=== PATIENT | female | born 1975 | race Caucasian/White ===

== ENCOUNTER 2017-07-30 21:25 | Emergency (ER) | payer MEDICAID, SELFPAY ==
[2017-07-30 21:28] VITALS: BP 142/99; PULSE 100; PULSE 99; RESP 18; RESP 20; TEMP 37.4; O2SAT 96; O2SAT 97; BMI 28.9
[2017-07-30 22:44] LABS: Color, Urine Yellow (Yellow); Glucose, Dipstick Normal (Normal); Ketone-Dipstick Negative (Negative); Leukocyte Esterase-Dipstick Negative /ul (Negative); Nitrite-Dipstick Negative (Negative); Occult Blood-Urine Negative /ul (Negative); Protein-Dipstick Negative (Negative); Specific Gravity, Urine 1.015 (1.002-1.030); Urine Bilirubin Dipstick Negative (Negative); Urine Clarity Clear (Clear); Urine Urobilinogen Normal (Normal)
--- NOTE | 2017-07-30 22:45 | CT_ITS ---
STUDY: CT ABDOMEN AND PELVIS WITHOUT CONTRAST REASON FOR EXAM: Female, 41 years old. No pelvic pain x3 days, urinary pressure and urgency. Elevated pressure. History of hypertension, RADIATION DOSAGE (If Supplied By Facility): CTDIvol = ( 11.75 ) mGy, DLP = ( 601.81 ) mGycm TECHNIQUE: Transaxial 2.5 mm images were obtained from the dome of the diaphragm to the symphysis pubis without oral contrast, and without intravenous contrast. Sagittal and coronal images were reconstructed. This examination is limited for the evaluation of gastrointestinal, solid organs and vascular structures due to the lack of intravenous and oral contrast. Individualized dose optimization techniques were used for this CT. COMPARISON: None. FINDINGS: The visualized lung bases are unremarkable. The visualized portions of the heart are within normal limits. Normal liver. Normal gallbladder and extrahepatic biliary system. Normal spleen. Normal pancreas. Normal bilateral adrenal glands. Normal right kidney. Normal left kidney. There is no obstructive uropathy, obstructive renal or ureteral calculi. Normal visualized stomach. Normal small intestine. Normal colon. The appendix is visualized and appears normal. Image 46-51 series 601. Normal abdominal aorta. Normal inferior vena cava. Normal retroperitoneum. Normal urinary bladder. There is fluid around the uterus and adnexa with poor delineation of ovaries and uterus. There is a complex fatty lesion with soft tissue, fat and calcification in the left adnexa highly suspicious for a left dermoid of the ovary measuring approximately 2.9 x 3 x 2.5 cm image 155 series 2, image 46 series 601. Normal abdominal wall. There are diffuse degenerative changes of the visualized lower lumbar spine. CT/Abdomen/Pelvis without Cont IMPRESSION: There is no obstructive uropathy, obstructive renal or ureteral calculi. Left ovarian dermoid suspected with limited detail of uterus and adnexa and pelvic fluid. Further assessment can be performed with pelvic ultrasound. Electronically Signed: Tesha Stevenson MD at 0:42 EDT , Service support ,
[2017-07-30 22:49] LABS: Absolute Lymphocyte Count 2.19 X10^3/ul (0.83-4.51); Absolute Neutrophil Count 5.3 X10^3/uL (2.0-7.7); Basophil# 0.02 X10^3/uL; Basophil% 0.2 % (0-1); Eosinophils% 1.2 % (0-5); Hematocrit 42.9 % (37-47); Hemoglobin 14.5 g/dl (12.0-15.0); Lymphocyte # 2.19 X10^3/ul (4.0); Lymphocyte % 26.5 % (19-41); Mean Corp Hgb Conc 33.8 g/gl (32-36); Mean Corpuscular Hgb 29.2 pg (27.0-32.0); Mean Corpuscular Volume 86.5 fL (81-99); Mean Platelet Vol. 10.6 fl (6.2-12.0); Monocyte# 0.67 X10^3/uL; Monocyte% 8.1 % (0-10); Neutrophil # 5.28 X10^3/uL (2.7-7.7); Neutrophil % 63.9 % (47-70); Platelet Count 216 K/mm3 (150-450); RBC Distribution Width CV 12.4 % (11.6-14.6); RBC Distribution Width SD 39.5 fl (35.1-43.9); Red Blood Count 4.96 M/mm3 (4.2-5.4); White Blood Count 8.3 K/mm3 (4.4-11.0)
[2017-07-30 22:50] LABS: POSITIVE COUNT NO; POSITIVE DIFFERENTIAL NO; POSITIVE MORPHOLOGY NO
[2017-07-30 23:06] LABS: Anion Gap 5 (5-15); BUN 14 mg/dL (7-18); BUN/Creat Ratio 19.9 RATIO (10-20); Calcium,Total 8.7 mg/dL (8.5-10.1); Chloride 107 mmol/L (98-107); EST Glomerular Filtration Rate 98 mL/min (>60); Est Glom Filt Rate - Afr Amer 118 mL/min (>60); Estimated Creatinine Clearance 101.01 ml/min; Glucose 96 mg/dL (74-106); Sodium Level 138 mmol/L (136-145)
[2017-07-30 23:12] LABS: Mucous, Urine RARE /hpf (<or=2+)
[2017-07-30 23:13] LABS: Squamous Epithelial Cells - UA 0-5 SEEN /hpf (5-10); White Blood Cells 0-5 SEEN /hpf (0-5)
[2017-07-30 23:15] LABS: Bacteria RARE /hpf (None Seen)
[2017-07-30 23:16] LABS: Red Blood Cells-Urine 0 SEEN /hpf (0-5)
[2017-07-30 23:19] LABS: Pregnancy, Serum, hCG Quali. NEGATIVE Negative (0-9 Nonpreg)
[2017-07-30 23:30] VITALS: BP 141/88; PULSE 91; RESP 16; O2SAT 97
--- NOTE | 2017-07-31 01:27 | ED.VISSUMM ---
- ER Visit Summary Date of Service: 07/31/17 Chief Complaint: Abdominal pain] History of Present Illness: The patient is a 41 F [presents with abdominal pain ?3 days. Patient currently rates her pain a 5 out of 10. Patient describes some pressure over her bladder as well as urinary frequency and urgency. Patient's been feeling somewhat bloated since yesterday. Patient denies any fever. Patient was seen at the urgent care today and sent to the ER. Patient's last menstrual period was about a month ago. Patient states her periods are typically irregular. Past medical history includes hypertension.] Physical Examination: [HEENT-PERRLA, EOMI. Cranial nerves II through XII grossly intact. TMs clear. Mucous membranes moist. No adenopathy. Cardiovascular-regular rate and rhythm without murmur or ectopy Lungs-clear to auscultation, chest wall stable without crepitus or subcu emphysema Abdomen-normoactive bowel sounds, soft. Patient has some mild tenderness over the suprapubic region. There is no rebound, rigidity, or perineal signs. Extremities-intact ?4, normal range of motion, normal pulses, atraumatic] Test Results: [CBC with differential was normal. Chemistries were normal. Urinalysis was unremarkable. HCG was negative. CT scan of the abdomen and pelvis obtained showed no obstructive uropathy left ovarian dermoid suspected with limited detail of uterus and adnexa and patient also noted to have pelvic fluid. The appendix was normal.] Emergency Department Course and Treatment: [Patient case was discussed with Dr. Rico who is on-call for [employer] who asked that patient follow-up with her office.] Treatment Plan: [Patient does not want anything for pain and will follow up with Dr. Rico.] Disposition: [Discharged home in stable condition] Impression: [Abdominal pain Dermoid cyst] This note was generated with [employer] dictation software. It may contain incorrect words, spelling, and punctuation that were not noted in review of the chart prior to signing ED Disposition - Plan for ED Patient: Chief Complaint: Female C/O Referrals: Care Physician,No Primary [Primary Care Provider] -
--- NOTE | 2017-07-31 01:30 | ED.DEP ---
ED Disposition - Plan for ED Patient: Chief Complaint: Female C/O Instructions: ED Abdominal Pain Unkn Cause, What Are Ovarian Cysts? Referrals: Care Physician,No Primary [Primary Care Provider] - Serena Rico MD [STAFF PHYSICIAN] - 3-5 Days
[2017-07-31 01:48] VITALS: BP 129/66; PULSE 82; RESP 16; O2SAT 98
== END 2017-07-31 01:49 | disposition home or self-care (01) ==
LOC: ED 23:12
PROVIDERS: Emergency Provider Emergency Medicine
DX: D27.1 Benign neoplasm of left ovary (principal); R10.9 Unspecified abdominal pain; I10 Essential (primary) hypertension; Z79.899 Other long term (current) drug therapy
CPT/HCPCS: 74176; 80048; 81001; 84703; 85025; 99283; A4216

== ENCOUNTER → 2017-08-03 07:23 | Outpatient (CLI) | payer MEDICAID, SELFPAY ==
[2017-08-07 11:34] LABS: HPV APTIMA, High Risk Negative (Negative)
== END ==
PROVIDERS: Visit Provider Nurse Practitioner Women's Health
DX: Z12.4 Encounter for screening for malignant neoplasm of cervix (principal)
CPT/HCPCS: 88175; G0145

== ENCOUNTER → 2017-08-12 12:25 | Outpatient (CLI) | payer MEDICAID, SELFPAY ==
--- NOTE | 2017-08-12 12:30 | US_ITS ---
STUDY: ULTRASOUND OF THE FEMALE PELVIS - COMPLETE REASON FOR EXAM: Female, 41 years old. Dermoid cyst on CT. LMP: August 10, 2017. TECHNIQUE: Transabdominal and Transvaginal TECHNICAL QUALITY: Adequate. COMPARISON: CT abdomen and pelvis July 30, 2017 FINDINGS: The uterus is anteverted and is in a midline position. The uterus measures 7.7 x 5.5 x 4.0 cm. Normal uterine cervix. The endometrium measures 2.7 mm in thickness, and is hyperechoic. There is no demonstrated endometrial mass. There is no demonstrated myometrial mass. I.U.D. - The patient does not have an I.U.D. The right ovary is visualized. The right ovary measures 3.5 x 5.5 x 4.0 cm. There are multiple small, peripheral follicles of the right ovary without a dominant cyst. There is no visualized right adnexal mass or complex lesion. There is normal arterial and normal venous vascularity. The left ovary is visualized. The left ovary measures 5.0 x 3.3 x 3.5 cm. This includes a complex, mixed echogenic 2.7 x 2.2 x 2.3 cm partially fluid filled structure correlating to the dermoid on CT. There is a band of hypoechogenicity within this, presumably correlating to the partially calcified eccentric soft tissue density at the margin of the dermoid on CT. There is normal arterial and normal venous vascularity. There is no fluid in the cul-de-sac. The pre void volume of the bladder was 75.4 ml. Polycystic ovary disease: No. US/Pelvic (Non ) IMPRESSION: 1. Complex 2.7 cm lesion in the left ovary correlating to the dermoid noted by CT. 2. The uterus and right ovary are unremarkable. Electronically Signed: Ambrocio Sethi MD at 19:54 EDT , Service support ,
--- NOTE | 2017-08-12 12:30 | US_ITS ---
STUDY: ULTRASOUND OF THE FEMALE PELVIS - COMPLETE REASON FOR EXAM: Female, 41 years old. Dermoid cyst on CT. LMP: August 10, 2017. TECHNIQUE: Transabdominal and Transvaginal TECHNICAL QUALITY: Adequate. COMPARISON: CT abdomen and pelvis July 30, 2017 FINDINGS: The uterus is anteverted and is in a midline position. The uterus measures 7.7 x 5.5 x 4.0 cm. Normal uterine cervix. The endometrium measures 2.7 mm in thickness, and is hyperechoic. There is no demonstrated endometrial mass. There is no demonstrated myometrial mass. I.U.D. - The patient does not have an I.U.D. The right ovary is visualized. The right ovary measures 3.5 x 5.5 x 4.0 cm. There are multiple small, peripheral follicles of the right ovary without a dominant cyst. There is no visualized right adnexal mass or complex lesion. There is normal arterial and normal venous vascularity. The left ovary is visualized. The left ovary measures 5.0 x 3.3 x 3.5 cm. This includes a complex, mixed echogenic 2.7 x 2.2 x 2.3 cm partially fluid filled structure correlating to the dermoid on CT. There is a band of hypoechogenicity within this, presumably correlating to the partially calcified eccentric soft tissue density at the margin of the dermoid on CT. There is normal arterial and normal venous vascularity. There is no fluid in the cul-de-sac. The pre void volume of the bladder was 75.4 ml. Polycystic ovary disease: No. US/Transvaginal Non- IMPRESSION: 1. Complex 2.7 cm lesion in the left ovary correlating to the dermoid noted by CT. 2. The uterus and right ovary are unremarkable. Electronically Signed: Ambrocio Sethi MD at 19:54 EDT , Service support ,
== END ==
PROVIDERS: Visit Provider Nurse Practitioner Women's Health
DX: D27.1 Benign neoplasm of left ovary (principal); R10.2 Pelvic and perineal pain
CPT/HCPCS: 76830; 76856; 93976

== ENCOUNTER 2017-08-25 22:25 | Emergency (ER) | payer MEDICAID, SELFPAY ==
[2017-08-25 22:26] VITALS: BP 139/94; PULSE 98; RESP 18; TEMP 37; O2SAT 98; BMI 28.2
--- NOTE | 2017-08-25 22:44 | ED.VISSUMM ---
- ER Visit Summary Date of Service: 08/25/17 Chief Complaint: Right calf pain History of Present Illness: The patient is a 41 F who presents for 1 day of right calf pain. Patient states she has been having knee pain for 1 week, and today her upper calf has been hurting. Denies any history of trauma. Denies fever, chest pain, shortness of breath. She has had decreased physical activity due to pain from a dermoid cyst on her ovary. She denies tobacco use, exogenous hormone use, recent travel or surgery, or history of venous thromboembolism. History of hypertension since age 16. Physical Examination: Vital signs: afebrile, hemodynamically stable, no hypoxia on room air General: well nourished, well developed, in no distress Skin: warm, dry, no rash, no pallor HEENT: normocephalic and atraumatic; PERRL, EOMI, moist mucous membranes Cardiovascular: Heart rate 98, regular rate and rhythm without murmurs, no peripheral edema, 2+ pulses all distal extremities Respiratory: No increased work of breathing, lungs are clear to auscultation bilaterally, no rales, rhonchi or wheezing Abdominal: Abdomen is soft, nontender with normoactive bowel sounds, no guarding or rebound, no masses MSK: Moves all extremities, no deformities, normal strength, tenderness to palpation of the right proximal posterior calf, no palpable cords, negative Homans sign, 2+ DP pulses, posterior pain with range of motion of the knee and no deformities to the knee, no swelling or joint effusion Neuro: Awake and alert, oriented ?4. No facial droop, sensation and motor function intact and symmetric Test Results: [] Emergency Department Course and Treatment: Patient was offered and declined pain medication. Ultrasound was performed of the right lower extremity to evaluate for possible DVT as the source of patient's new calf pain. It was negative. Discussed symptomatic treatment with patient, and she should follow-up with her doctor if she continues to have knee pain and calf pain. Patient agreed and was discharged home. Treatment Plan: [] Disposition: [] Impression: Atraumatic right knee and calf pain This note was generated with [employer] dictation software. It may contain incorrect words, spelling, and punctuation that were not noted in review of the chart prior to signing ED Disposition - Plan for ED Patient: Disposition: Home or Assisted Living Chief Complaint: Lower Extremity Injury Instructions: ED Knee Pain UKO Referrals: Care Physician,No Primary [Primary Care Provider] - Doctor,Your [STAFF PHYSICIAN] - 3-5 Days if not improving Additional Instructions: Your ultrasound of your leg showed no blood clot. Please use [id number] pain medication of your choice for knee pain and the calf pain. You may also use ice and elevation of the leg to see if this helps with the pain. Please follow-up with your doctor for further evaluation if you continue to have issues with your leg. If you have any worsening of your condition or any new concerning symptoms, please return immediately to the emergency department for another evaluation.
--- NOTE | 2017-08-25 23:34 | US_ITS ---
STUDY: VENOUS DOPPLER ULTRASOUND - RIGHT LOWER EXTREMITY REASON FOR EXAM: Female, 41 years old. Right calf pain TECHNIQUE: Ultrasound evaluation of the deep vein system to include whitehead-scale imaging and compression was performed. Whitehead-scale imaging and Doppler sonographic evaluation, including duplex spectral analysis and qualitative color flow sonography, was performed. COMPARISON: None. FINDINGS: No deep venous thrombosis is identified. All visualized veins demonstrate normal compressibility, augmentation and/or color flow. US/Venous Duplex Imag/Limited/Uni IMPRESSION: No DVT is identified. Electronically Signed: Francisco Valadez MD at 0:35 EDT Tel , Service support ,
--- NOTE | 2017-08-26 00:43 | ED.DEP ---
ED Disposition - Plan for ED Patient: Disposition: Home or Assisted Living Chief Complaint: Lower Extremity Injury Instructions: ED Knee Pain UKO Referrals: Care Physician,No Primary [Primary Care Provider] - Doctor,Your [STAFF PHYSICIAN] - 3-5 Days if not improving Additional Instructions: Your ultrasound of your leg showed no blood clot. Please use [id number] pain medication of your choice for knee pain and the calf pain. You may also use ice and elevation of the leg to see if this helps with the pain. Please follow-up with your doctor for further evaluation if you continue to have issues with your leg. If you have any worsening of your condition or any new concerning symptoms, please return immediately to the emergency department for another evaluation.
[2017-08-26 01:03] VITALS: BP 131/82; PULSE 78; RESP 16; O2SAT 95
== END 2017-08-26 01:03 | disposition home or self-care (01) ==
PROVIDERS: Emergency Provider Emergency Medicine
DX: M25.561 Pain in right knee (principal); M79.661 Pain in right lower leg; I10 Essential (primary) hypertension; Z79.899 Other long term (current) drug therapy
CPT/HCPCS: 93971; 99282

== ENCOUNTER → 2017-10-01 12:28 | Outpatient (CLI) | payer MEDICAID, SELFPAY ==
--- NOTE | 2017-10-01 12:31 | US_ITS ---
STUDY: ULTRASOUND TRANSVAGINAL CLINICAL: Female, 42 years old. History of dermoid cyst, pelvic and perineal pain. TECHNIQUE: Transabdominal and Transvaginal COMPARISON: Prior study of August 12, 2017 FINDINGS: Uterus measures 7.5 x 4.7 x 4.3 cm, is anteverted, and is in a midline position.. Uterus demonstrates a heterogeneous echotexture. There are no myometrial masses. Normal endometrial thickness measuring 4.7 mm. There are no endometrial masses, and there is no fluid in the endometrial cavity. There is a cervical nabothian cyst. Normal right ovary, measuring 3.2 x 2.5 x 2.4 cm. Normal left ovary, measuring 3.8 x 4.0 x 3.1 cm. There is a mixed echogenic left ovarian structure measuring 2.9 x 3.0 x 2.5 cm appearing similar to the previous study, corresponding to an ovarian dermoid reported on prior CT of 07/30/2017. There is no free fluid in the pelvis. Polycystic ovary disease: No. US/Transvaginal Non- IMPRESSION: Mixed echogenic left ovarian structure measuring 2.9 x 3.0 x 2.5 cm corresponding to a left ovarian dermoid reported on prior CT of 07/30/2017. Uterus demonstrates a heterogeneous echotexture. There is a cervical nabothian cyst. There is no fluid in the cul-de-sac. Electronically Signed: Nicola Crisostomo MD at 22:15 EDT , Service support ,
== END ==
PROVIDERS: Visit Provider Obstetrics & Gynecology
DX: N83.202 Unspecified ovarian cyst, left side (principal); R10.2 Pelvic and perineal pain
CPT/HCPCS: 76830; 93976

== ENCOUNTER 2017-10-15 10:35 | Day surgery (SDC) | payer MEDICAID, SELFPAY ==
--- NOTE | 2017-10-13 17:07 | PCM.HP.STD ---
Problem List (1) Dermoid cyst Status: Acute History of Present Illness Date of Admission: 10/15/17 Chief Complaint: dermoid cyst The patient is a 42 year old F presents for laparoscopic removal of a left ovarian dermoid cyst for which she has had pain and it has been persistent. Past Medical History Medical History: Medical History (Last Updated 08/03/17 @ 13:27 by Niki Lepe) History of depression Z86.59 Hypertension I10 Allergies Penicillins Allergy (Verified 10/09/17 14:39) Swelling Sulfa (Sulfonamide Antibiotics) Allergy (Verified 10/09/17 14:39) Unknown sulfamethoxazole [From Bactrim] Allergy (Verified 10/09/17 14:39) Angioedema trimethoprim [From Bactrim] Allergy (Verified 10/09/17 14:39) Angioedema azithromycin [From Zithromax] Adverse Reaction (Verified 10/09/17 14:39) Other IT JUST MADE ME SO SICK I COULDN'T FUNCTION sumatriptan [From Imitrex] Adverse Reaction (Verified 10/09/17 14:39) Chest tightness sumatriptan succinate [From Imitrex] Adverse Reaction (Verified 10/09/17 14:39) Chest tightness azithromycin Allergy (Mild, Uncoded 10/09/17 14:39) Other Home Medications: Ambulatory Orders Medication Instructions Recorded Labetalol [Trandate (Beta Fernanda)] 600 mg PO TID 08/12/13 Nifedipine [Nifedipine ER] 60 mg PO QHS 02/02/14 multivitamin,ua-mhrb-uaoligkw 1 tab PO DAILY 08/03/17 tablet Aspirin/Acetaminophen/Caffeine 1 each PO PRN PRN 10/09/17 [Excedrin Migraine Caplet] Calcium Carbonate/Vitamin D3 1 each PO DAILY 10/09/17 [Calcium 500-Vit D3 600 Caplet] Vitamin B Complex 1 each PO QODAY 10/09/17 Surgical History: Surgical History (Last Updated 08/03/17 @ 13:27 by Niki Lepe) delivery delivered O82 H/O dilation and curettage Z98.890 S/P eye surgery Z98.890 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 Denies: Diarrhea, Nausea, Vomiting Genitourinary: Denies: Dysuria, Hematuria Musculoskeletal: Denies: Joint Pain, Muscle pain Skin: Denies: Lesions, Rash Neurological: Denies: Blurred vision, Focal weakness, Headaches Psychiatric: Denies: Anxiety, Depression Endocrine: Denies: Heat/ Cold Intolerance Hematologic/ Lymphatic: Denies: Easy Bruising, Easy Bleeding VTE Information - Inpt Only VTE Present on Admission: No - Physical Exam General: Alert, Oriented x3, Cooperative HEENT: Atraumatic, PERRLA, EOMI, Normocephalic Neck: Supple, Thyroid Normal Size and Texture Lungs: Clear to auscultation, Normal air movement Cardiovascular: Regular rate, No murmurs Abdomen: Bowel Sounds Present, Soft, Non Tender Extremities: No edema Skin: No rashes, No breakdown Musculoskeletal: No Tenderness to Palpation of Joints or Extremities Neurological: Cranial nerves II-XII grossly intact Psych/Mental Status: Normal Affect, Appropriate Assessment/Plan All Active Problems (Last Updated 08/03/17 @ 13:27 by Niki Lepe) Dermoid cyst (Acute) 42 yo presents for laparoscopic left ovarian cystectomy possible oophorectomy for dermoid ovarian cyst. discussed surgical risks including risks of anesthesia, infection, bleeding, injury to bowel, bladder or blood vessels, and patient wishes to proceed with surgery. UPDATE- I have seen the patient and performed any clinically relevant updates to the history and physical exam. Serena Rico MD
[2017-10-15] VITALS (10 sets, daily range): BP systolic 117–135; BP diastolic 81–93; PULSE 74–97; RESP 16–18; TEMP 36.6–36.9; O2SAT 95–99; BMI 28.8
[2017-10-15 10:58] LABS: Internal QC Validated? YES +Cl - CLEAR BKGD; Pregnancy, Urine Negative Negative
[2017-10-15 11:12] LABS: Absolute Lymphocyte Count 1.34 X10^3/ul (0.83-4.51); Absolute Neutrophil Count 2.8 X10^3/uL (2.0-7.7); Basophil# 0.03 X10^3/uL; Basophil% 0.6 % (0-1); Eosinophil# 0.07 X10^3/uL; Eosinophils% 1.5 % (0-5); Hematocrit 40.5 % (37-47); Hemoglobin 13.8 g/dl (12.0-15.0); Lymphocyte # 1.34 X10^3/ul (4.0); Lymphocyte % 28.5 % (19-41); Mean Corp Hgb Conc 34.1 g/gl (32-36); Mean Corpuscular Hgb 29.2 pg (27.0-32.0); Mean Corpuscular Volume 85.8 fL (81-99); Mean Platelet Vol. 10.1 fl (6.2-12.0); Monocyte# 0.44 X10^3/uL; Monocyte% 9.4 % (0-10); Neutrophil # 2.82 X10^3/uL (2.7-7.7); Platelet Count 197 K/mm3 (150-450); RBC Distribution Width SD 38.1 fl (35.1-43.9); Red Blood Count 4.72 M/mm3 (4.2-5.4); White Blood Count 4.7 K/mm3 (4.4-11.0)
[2017-10-15 11:13] LABS: POSITIVE COUNT NO; POSITIVE DIFFERENTIAL NO; POSITIVE MORPHOLOGY NO
--- NOTE | 2017-10-15 12:20 | OV_PTH ---
PATIENT: NANCY NANCE LOC: [facility] [place] U#:[id number] AGE/SX: 42/F ROOM: RE10/15/[address]: Dr. Serena Rico MD : 1975 BED: DIS: 10/15/2017 SPEC #: [id number] RECD: 10/16/17 06:57 STATUS: RADHA JOSE A #: [id number] THOMAS: 10/15/17 12:[address]: Serena Rico DEPT: SURGICAL PATHOLOGY RECD BY: Frankie Jc ENTERED: 10/16/17 11:37 SP TYPE: OVARY OTHR DR: No Primary Care Phys Tissues: OVARIAN CYST Procedures: Surgery Specimen Level V HEADER OPERATION: Laparoscopic left ovarian cystectomy, dermoid cyst PRE-OP DIAGNOSIS: Left ovarian dermoid cyst TISSUE SUBMITTED: Left dermoid cyst MICROSCOPIC DIAGNOSIS Left ovarian dermoid cyst, oophorectomy: Mature cystic teratoma (dermoid cyst). Ovarian tissue with follicular cyst. AM:[place] 10/19/17 COMMENT Case has been reviewed in consultation with Dr. Carey who concurs with the above diagnosis. IDC:SJ MICROSCOPIC DESCRIPTION Slides are reviewed. Prominent benign thyroid component is present. GROSS DESCRIPTION Received in fixative is one container labeled with the patient's name and designated dermoid cyst, left. The specimen consists of two irregular fragments of light villalta soft tissue. The smaller fragment measures 1.5 x 1 x 0.5 cm. The larger fragment consists of a possible collapsed cystic structure measuring 3 x 2.5 x 1.5 cm. The smaller fragment is submitted in its entirety in cassette 1. The larger fragment is serially sectioned and reveals a partially collapse cyst containing villalta material. The cystic structure is sectioned and totally submitted in cassettes 2 & 3. / AM:[place] 10/16/17 TC:1 CPT: 45968
--- NOTE | 2017-10-15 12:53 | OP.PCM_ITS ---
Problem List (1) Dermoid cyst Status: Acute Report of Operation Date of Procedure: 10/15/17 Pre-Operative Diagnosis: dermoid cyst Surgery/Procedure Performed:: laparoscopic left ovarian cystectomy Description of Surgical Findings:: left ovarian dermoid cyst, phlegmon appearance to uterus fuel handler: Fariha Alves Type of Anesthesia:: General Special Medications: none Specimen's removed: ovarian cyst Drains: none Estimated Blood Loss (mL): minimal Fluids Replaced: crystalloid Description of Procedure: Patient was taken in the operating room and was placed under general anesthesia was prepped and draped in normal sterile fashion in the dorsal lithotomy position. Bladder was drained of clear urine and SCDs were on preoperatively. Uterus was sounded and a uterine manipulator was placed after dilating. Attention was then paid to the abdominal portion of the procedure and the umbilicus was elevated with towel clamps and injected with Marcaine and after a 5 mm incision was made and the Veress needle was entered into the abdomen confirmed to be intra-abdominal with a low opening pressure of less than 5 mmHg. Abdomen was insufflated with CO2 gas and a 5 mm optical trocar was placed under direct visualization. A left lower quadrant 5 mm port and a 12 mm port was swapped out for the umbilical port and a RLQ 5 mm port was placed under direct visualization. Uterus was well visualized and the left ovary was noted to be enlarged with a cyst. Using the monopolar scissors incision was made across the ovary and upon doing this there was a rupture of the cyst with gelatinous fluid being removed. The cyst was then dissected away from the normal ovary wall and cystectomy was performed without complication. The area was aggressively suctioned and irrigated. Mason was applied to the base of the ovary where the area was bleeding. The right ovary was also inspected and noted to be cystic which was drilled into with the monopolar scissors and clear fluid returned confirming corpus luteal cysts. Excellent hemostasis was noted. tissue was removed using a bag through the umbilical port without complication. The 12mm port site was closed directly with 0 vicryl. Liver and upper abdomen were visualized notably within normal limits and no other gross abnormalities were seen in the abdomen. All instruments removed from the abdomen after gas was desufflated. Port sites were closed with 3-0 Monocryl Steri's and op sites were applied. All instruments removed from the vagina and patient was awoken and taken recovery in stable condition. Grafts/Implants Used: none - Complications none
--- NOTE | 2017-10-15 13:02 | PCM.DC.TUB ---
Discharge Diet: No Restrictions - Increase fluid intake for the next 48 hours. Discharge Activity: Return to Normal Activity, May Drive - when you are no longer taking narcotic pain medications., May Shower, May Take a Tub Bath - in 7 days Additional Activity Instructions:: Ambulate often the next week after surgery. Nothing in the vagina for 5 days. Call your doctor if your incision/area has: Continuous Slow Oozing, Sudden Increased Bleeding, Increased Pain/ Swelling, Increased Redness, Foul Smelling Discharge Call your doctor if you observe: Fever of 101 or Higher Allergies/Adverse Reactions: Allergies Penicillins Allergy (Verified 10/09/17 14:39) Swelling Sulfa (Sulfonamide Antibiotics) Allergy (Verified 10/09/17 14:39) Unknown sulfamethoxazole [From Bactrim] Allergy (Verified 10/09/17 14:39) Angioedema trimethoprim [From Bactrim] Allergy (Verified 10/09/17 14:39) Angioedema azithromycin [From Zithromax] Adverse Reaction (Verified 10/09/17 14:39) Other IT JUST MADE ME SO SICK I COULDN'T FUNCTION sumatriptan [From Imitrex] Adverse Reaction (Verified 10/09/17 14:39) Chest tightness sumatriptan succinate [From Imitrex] Adverse Reaction (Verified 10/09/17 14:39) Chest tightness azithromycin Allergy (Mild, Uncoded 10/09/17 14:39) Other Medications to take at Discharge Labetalol [Trandate (Beta Fernanda)] 600 mg PO TID 08/12/13 Nifedipine [Nifedipine ER] 60 mg PO QHS 02/02/14 multivitamin,al-ryis-flflcefp tablet 1 tab PO DAILY 08/03/17 Aspirin/Acetaminophen/Caffeine [Excedrin Migraine Caplet] 1 each PO PRN PRN 10/09/17 Calcium Carbonate/Vitamin D3 [Calcium 500-Vit D3 600 Caplet] 1 each PO DAILY 10/09/17 Vitamin B Complex 1 each PO QODAY 10/09/17 Naproxen [Naprosyn] 250 - 500 mg PO Q8H PRN PRN #30 tab 10/15/17 Oxycodone HCl/Acetaminophen [Percocet 5-325] 1 - 2 tablet PO Q4H PRN PRN 7 Days #28 tablet 10/15/17 The following prescriptions were given: Oxycodone HCl/Acetaminophen [Percocet 5-325] 1 - 2 tablet PO Q4H PRN PRN 7 Days #28 tablet PRN Reason: Moderate-Severe pain Naproxen [Naprosyn] 250 - 500 mg PO Q8H PRN PRN #30 tab PRN Reason: MILD PAIN Primary Care Physician: Care Physician,No Primary [Primary Care Provider] - Test Results: Please Follow Up With: Serena Rico MD - [phone]
[2017-10-15] MEDS: Bupivacaine 0.25% 30 ML Vial (13:12)
[2017-10-15] MEDS: HYDROcodone Bitartrate/Apap 5/325 Tablet PO (15:47)
== END 2017-10-15 17:30 | disposition home or self-care (01) ==
LOC: SDC 10:36 → AC 10:37
PROVIDERS: Visit Provider Obstetrics & Gynecology
PROC: (CPT 58720; principal; 2017-10-15 12:05)
DX: D27.1 Benign neoplasm of left ovary (principal); N83.02 Follicular cyst of left ovary; N71.0 Acute inflammatory disease of uterus; I49.9 Cardiac arrhythmia, unspecified; I10 Essential (primary) hypertension; E28.2 Polycystic ovarian syndrome; Z79.899 Other long term (current) drug therapy
CPT/HCPCS: 00840; 58662; 81025; 85025; 86850; 86900; 88305; 88307; J7120; J0330; J2405

== ENCOUNTER 2017-12-25 23:14 | Emergency (ER) | payer MEDICAID, SELFPAY ==
[2017-12-25 23:15] VITALS: BP 161/115; PULSE 98; RESP 18; TEMP 36.5; O2SAT 97; BMI 29.0
[2017-12-25 23:29] VITALS: BP 176/98; PULSE 75; RESP 14; O2SAT 99
--- NOTE | 2017-12-26 00:01 | EKG12_ITS ---
Test Reason : HYPERTENSION Blood Pressure : / mmHG Vent. Rate : 070 BPM Atrial Rate : 070 BPM P-R Int : 164 ms QRS Dur : 088 ms QT Int : 376 ms P-R-T Axes : 054 045 035 degrees QTc Int : 406 ms Normal sinus rhythm Normal ECG Confirmed by FEMI DURÁN MD ([id number]), managing editor TREASURE STOCKTON ([id number] on 12/28/2017 3:25:25 PM Referred By: FIDEL Confirmed By:FEMI DURÁN MD
--- NOTE | 2017-12-26 00:02 | ED.VISSUMM ---
- ER Visit Summary Date of Service: 12/26/17 Chief Complaint: Elevated blood pressure History of Present Illness: The patient is a 42 F history of hypertension on labetalol 600 mg 3 times daily, nifedipine 60 mg nightly followed by Dr. Bee presents for elevated blood pressure of 190/118 at home. No missed doses of medication states he did take an extra dose of labetalol. Has had workup in the past with specialist. States he was hereditary. No decongestant use, no recent vomiting diarrhea. States did feel some mild chest discomfort. No recent illness or cough. No dyspnea. No nausea or vomiting. Physical Examination: General: Alert and oriented ?3, no acute distress HEENT: Normocephalic, atraumatic. Moist mucosa membranes Neck: supple, nontender. Cardiovascular: Regular rate and rhythm, no murmurs Respiratory: Normal breath sounds, symmetric, no distress Abdomen: Soft, nontender, nondistended Extremities: Nontender, no edema, pulses intact ?4 Neuro: no focal neurological deficits. Test Results: EKG sinus rate of [address] or T-wave changes. Hemoglobin 13.5. Creatinine 0.71. Troponin 0 0.015. Emergency Department Course and Treatment: Patient chest symptoms with her elevated blood pressure. Cardiac workup was negative. Blood pressure monitored trended down without intervention 143/92. She does report increased stress over the past week. Discussed with patient continue her medications monitor symptoms and follow-up with her [employer] consultant who monitors her blood pressure. YANG score 0. Signs and symptoms discussed return. All questions were answered. Treatment Plan: [] Disposition: Discharge Impression: 1. Elevated blood pressure with history of hypertension 2. Atypical chest pain This note was generated with [employer] dictation software. It may contain incorrect words, spelling, and punctuation that were not noted in review of the chart prior to signing ED Disposition - Plan for ED Patient: Disposition: Home or Assisted Living Chief Complaint: Hypertension Diagnosis: Elevated blood pressure, Atypical chest pain Instructions: ED HTN Established, ED Chest Pain Atypical Unkn Cause Referrals: Care Physician,No Primary [Primary Care Provider] - Michele Bee MD [STAFF PHYSICIAN] - 3-5 Days Additional Instructions: improved 143/92 w/o intervention. Continue home medications. Monitor your blood pressure. Follow with Dr. Bee.
[2017-12-26 00:43] LABS: Absolute Lymphocyte Count 1.94 X10^3/ul (0.83-4.51); Absolute Neutrophil Count 3.2 X10^3/uL (2.0-7.7); Basophil# 0.03 X10^3/uL; Basophil% 0.5 % (0-1); Eosinophils% 1.7 % (0-5); Hematocrit 39.8 % (37-47); Hemoglobin 13.5 g/dl (12.0-15.0); Lymphocyte # 1.94 X10^3/ul (4.0); Lymphocyte % 33.9 % (19-41); Mean Corp Hgb Conc 33.9 g/gl (32-36); Mean Corpuscular Volume 85.6 fL (81-99); Mean Platelet Vol. 10.2 fl (6.2-12.0); Monocyte# 0.46 X10^3/uL; Neutrophil # 3.19 X10^3/uL (2.7-7.7); Neutrophil % 55.9 % (47-70); Platelet Count 192 K/mm3 (150-450); RBC Distribution Width CV 12.1 % (11.6-14.6); RBC Distribution Width SD 37.6 fl (35.1-43.9); Red Blood Count 4.65 M/mm3 (4.2-5.4); White Blood Count 5.7 K/mm3 (4.4-11.0)
[2017-12-26 00:48] LABS: POSITIVE COUNT NO; POSITIVE DIFFERENTIAL NO; POSITIVE MORPHOLOGY NO
[2017-12-26 01:01] LABS: Anion Gap 8 (5-15); BUN 12 mg/dL (7-18); Calcium,Total 8.6 mg/dL (8.5-10.1); Chloride 108 mmol/L (98-107); Creatinine, Serum 0.71 mg/dL (0.55-1.02); EST Glomerular Filtration Rate 97 mL/min (>60); Est Glom Filt Rate - Afr Amer 118 mL/min (>60); Glucose 96 mg/dL (74-106); Potassium 3.7 mmol/L (3.5-5.1); Sodium Level 142 mmol/L (136-145)
[2017-12-26 01:44] VITALS: BP 143/92; PULSE 67; RESP 18; O2SAT 98
== END 2017-12-26 01:44 | disposition home or self-care (01) ==
PROVIDERS: Emergency Provider Emergency Medicine
DX: I10 Essential (primary) hypertension (principal); R07.89 Other chest pain
CPT/HCPCS: 80048; 84484; 85025; 93005; 99283; A4216

== ENCOUNTER 2018-11-28 01:54 | Emergency (ER) | payer MEDICAID, SELFPAY ==
[2018-11-28 01:55] VITALS: BP 157/93; RESP 16; TEMP 37; O2SAT 96; BMI 32.5
--- NOTE | 2018-11-28 02:16 | RAD_ITS ---
STUDY: X-RAY - SOFT TISSUE NECK REASON FOR EXAM: Female, 43 years old. Neck pain TECHNIQUE: 2 view(s) of the neck were obtained. COMPARISON: None. FINDINGS: Normal visualized nasopharynx, oropharynx, hypopharynx. Normal epiglottis. Normal visualized subglottic tracheal air column. Normal prevertebral soft tissue structures. Normal visualized osseous structures. The soft tissue structures are unremarkable. RAD/Neck for Soft Tissue IMPRESSION: Normal x-ray soft tissue neck. Electronically Signed: Susan Courtney, at 2:45 EDT Tel , Service support ,
[2018-11-28] MEDS: dexAMETHasone 4 MG Tablet 8 MG PO (02:23)
--- NOTE | 2018-11-28 02:25 | ED.VIS.URI ---
History of Present Illness Chief Complaint: Sore Throat Informant: Patient Onset: Yesterday Context: Gradual Onset Timing: Continuous Quality: sharp/pain Location: entire throat Current Severity: Moderate Maximum Severity: Moderate Worsened by: Swallowing Relieved by: Not Relieved By: NSAIDs Associated Symptoms: Nasal Congestion, Nonproductive cough, - - left, followed by bilat conjunctivitis. Negative for: Headache, Sinus Pressure, Nausea, Vomiting, Diarrhea, Shortness of Breath, Chest Pain, Hemoptysis Narrative: Patient has felt like she had a cold for 1 to 2 weeks, she started getting pinkeye 3 or 4 days ago and was prescribed ciprofloxacin drops for it. She feels them in the back of her throat eventually after using them, and was afraid that might of been causing her sore throat that she developed later. She denies any itching or rash. She is able to swallow but it really hurts. The pain is nonlateralizing. She denies any fevers. She is taking no other antibiotics. Past Medical History - Allergies and Home Meds Allergies/Adverse Reactions: Allergies Penicillins Allergy (Verified 11/28/18 01:55) Swelling Sulfa (Sulfonamide Antibiotics) Allergy (Verified 11/28/18 01:55) Unknown sulfamethoxazole [From Bactrim] Allergy (Verified 11/28/18 01:55) Angioedema trimethoprim [From Bactrim] Allergy (Verified 11/28/18 01:55) Angioedema azithromycin [From Zithromax] Adverse Reaction (Verified 11/28/18 01:55) Other IT JUST MADE ME SO SICK I COULDN'T FUNCTION sumatriptan [From Imitrex] Adverse Reaction (Verified 11/28/18 01:55) Chest tightness sumatriptan succinate [From Imitrex] Adverse Reaction (Verified 11/28/18 01:55) Chest tightness azithromycin Allergy (Mild, Uncoded 11/28/18 01:55) Other Primary Care Physician: Claudine Bowers NP-C [Primary Care Provider] - Past Medical History: None Smoking Status: Never smoker Review of Systems General: Denies: Chills, Fever Eyes: Reports: - - bilat eye redness and discharge. Denies: Visual changes - bilaterally ENT: Reports: Rhinorrhea, Sore throat Cardiovascular: Denies: Chest pain, Palpitations Respiratory: Reports: Cough. Denies: Dyspnea, Sputum Gastrointestinal: Denies: Abdominal pain, Nausea, Vomiting, Diarrhea, Melena, Hematochezia Musculoskeletal: Denies: Neck pain, Back pain Skin: Denies: Rash, Wounds Physical Exam Vital Signs/Narrative: Vital Signs Temp Resp BP Pulse Ox 11/28/18 01:55 98.6 F 16 157/93 H 96 Inital Vital Signs reviewed: Yes General: Well nourished, Well developed, - - well-appearing, nad Head: Normocephalic, Atraumatic Eyes: Perrl, EOMI Ears: Normal external canal, TM's clear Nose: Normal Inspection, No Rhinorrhea. Negative for: Swollen Turbinates, Purulent Drainage Mouth/Throat: Posterior Oropharyngeal Erythema - without tonsillar edema, abscess, asymmetry, or exudate. uvula midline, not grossly edematous. Neck: Supple, Nontender, No Lymphadenopathy Cardiovascular: Regular rate, Regular rhythm, No murmurs Respiratory: No distress, CTA bilaterally, Chest nontender Skin: Normal color, No rash, No Trauma Neurological: Alert, Oriented x3, Cranial nerves II-XII grossly intact, Normal Strength, Normal Sensation Psychological: Normal affect, Normal Mood Diagnostic/Tx/Re-eval Clinical Impression(s) from Imaging Studies Soft Tissue Neck X-Ray 11/28/18 02:16 IMPRESSION: Normal x-ray soft tissue neck. Electronically Signed: Susan Courtney, at 2:45 EDT Tel , Service support , - Medical Decision Making Rapid strep is negative and her neck soft tissue x-rays are also normal. Therefore I do not think any further antibiotics are indicated at this time. Culture is sent to rule out strep given the negative rapid test. She was given dose of Decadron which I suspect will help. All of her symptoms seem very viral, and the etiology of the pharyngitis may also be viral. Advised to follow-up or return if worse and she is comfortable with that plan. ED Disposition - Plan for ED Patient: Disposition: Home or Assisted Living Diagnosis: Viral upper respiratory infection, Bilateral conjunctivitis Instructions: PHARYNGITIS, Viral Referrals: GautamlogClaudine turcios NP-C [Primary Care Provider] - 3-5 Days if not improving
[2018-11-28 03:00] VITALS: BP 131/92; PULSE 90; RESP 18; O2SAT 96
== END 2018-11-28 03:01 | disposition home or self-care (01) ==
PROVIDERS: Emergency Provider Emergency Medicine; Family Provider Nurse Practitioner Primary Care; PCP Nurse Practitioner Primary Care
DX: J06.9 Acute upper respiratory infection, unspecified (principal); H10.9 Unspecified conjunctivitis
CPT/HCPCS: 70360; 87880; 99282

== ENCOUNTER 2023-04-12 11:08 | Emergency (ER) | payer OTHER, MEDICAID, SELFPAY ==
[2023-04-12 11:10] VITALS: BP 155/95; PULSE 130; RESP 22; TEMP 36.6; O2SAT 96; BMI 37.1
--- NOTE | 2023-04-12 11:23 | EKG12_ITS ---
Test Reason : SOB Blood Pressure : / mmHG Vent. Rate : 115 BPM Atrial Rate : 115 BPM P-R Int : 152 ms QRS Dur : 088 ms QT Int : 302 ms P-R-T Axes : 057 043 039 degrees QTc Int : 417 ms Sinus tachycardia Otherwise normal ECG Confirmed by LEEANNA GRANDA, FEMI ([id number]), assignment desk editor SULLY HOLDER ([id number]) on 04/14/2023 8:32:08 AM Referred By: JOYCELYN Confirmed By:FEMI DURÁN MD
--- NOTE | 2023-04-12 11:24 | ED.VIS.DYS ---
HPI History of Present Illness Chief Complaint: Shortness of Breath Informant: patient Narrative Narrative: Patient presents with cough nausea vomiting. Patient started with her symptoms on the of this month. She had some upper airway congestion. She has been coughing. Over the last day or so she has heard some wheezing and has no history of lung disease. Not having chest pain. She has been having hot and cold sensation but has not checked the fever. She has myalgias. She states she hurts from head to toe. 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 The reason she came in today is that she started with nausea and vomiting overnight. She cannot keep anything down including her medications and she is on 3 meds for blood pressure. No sputum production. [facility] Medical History (Updated 04/12/23 @ 14:[address] Riaz Porter MD) History of depression Hypertension Home Medications labetalol 200 mg tablet 600 mg PO TID BP 08/12/13 [History Last Taken 11/27/18 one] nifedipine 30 mg tablet,extended release 60 mg PO QHS BP 02/02/14 [History Last Taken 11/27/18 one] multivitamin,py-vzvj-gsnzmono (Complete Multivitamin tablet) 1 tab PO DAILY 08/03/17 [History Last Taken 11/27/18] bfehlpk-evzpargxdwthk-rragcenw 250 mg-250 mg-65 mg tablet 1 ea PO PRN PRN Migraine Symptoms 10/09/17 [History Last Taken 11/27/18] calcium carbonate 500 mg-vitamin D3 15 mcg (600 unit) tablet 1 ea PO DAILY SUPPLEMENT 10/09/17 [History Last Taken 11/27/18] diltiazem HCl 240 mg capsule,24 hr,extended release 240 mg PO DAILY 11/28/18 [History Last Taken Unknown] levofloxacin 500 mg tablet 500 mg PO DAILY #7 tabs 04/12/23 [Rx Last Taken Unknown] ondansetron 4 mg disintegrating tablet 4 mg PO Q8H PRN PRN Nausea #10 tabs 04/12/23 [Rx Last Taken Unknown] Allergy/AdvReac Type Severity Reaction Status Date / Time Penicillins Allergy Swelling Verified 04/12/23 11:10 Sulfa (Sulfonamide Allergy Unknown Verified 04/12/23 11:10 Antibiotics) sulfamethoxazole Allergy Angioedema Verified 04/12/23 11:10 [From Bactrim] trimethoprim [From Bactrim] Allergy Angioedema Verified 04/12/23 11:10 azithromycin [From Zithromax] AdvReac Other Verified 04/12/23 11:10 sumatriptan [From Imitrex] AdvReac Chest Verified 04/12/23 11:10 tightness sumatriptan succinate AdvReac Chest Verified 04/12/23 11:10 [From Imitrex] tightness Family History Grandmother Diabetes Father No problems noted. 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 Some specific details below. Constitutional: Positive chills and hot cold sensation. EYE: No discharge ENT: No difficulty swallowing. No swelling. No pain. No reflux symptoms. CV: No chest pain. Her heart rate is increased but she does not necessarily feel this. This may be due to dehydration or due to not taking her meds today. She is on 3 antihypertensives that would also keep her heart rate down normally. Respiratory: See history of present illness. GI: No abdominal pain. But she has had nausea and vomiting. No blood. No significant diarrhea. : No frequency dysuria or hematuria. Musculoskeletal: No recent trauma. No pains. No swelling. Skin: No rash. Nondiaphoretic. Neuro: No weakness or numbness. Endocrine: No polyuria or polydipsia. EXAM Physical Exam Narrative Exam Narrative: CONSTITUTIONAL: Patient is nontoxic in appearance. The patient looks comfortable. Work of breathing looks normal. HEENT: No notable trauma. Mucous membranes moist. No sinus tenderness. No indication of pain with swallowing. EYES: No conjunctival injection. No proptosis. NECK:No JVD. No stridor. CARDIOVASCULAR: Tachycardic rate. Regular rhythm. No notable murmur. No JVD. Peripheral pulses are normal. Tones are not muffled. RESPIRATORY: No respiratory distress. Breathing is unlabored. No wheezes at this time. No rhonchi. No rales. No pain with a deep breath. No chest wall tenderness. GASTROINTESTINAL: Not distended. Bowel sounds are normal. No tenderness. No guarding. No rebound. No palpable mass. No bruit is heard. GENITOURINARY: No tenderness over the bladder. No CVA tenderness. MUSCULOSKELETAL: Atraumatic. No peripheral edema. NEUROLOGICAL: Patient is alert and appropriate. No focal deficit noted. SKIN: No noted rashes. No diaphoresis. PSYCHIATRIC: Patient is calm. Mood is appropriate. Const Vital Signs: 04/12/23 11:10 04/12/23 11:44 04/12/23 11:52 Temperature 97.9 F Temperature Source Temporal Pulse Rate 130 H 117 H Respiratory Rate 22 H 18 Respiratory Pattern Normal Blood Pressure 155/95 H Blood Pressure Mean 115 Pulse Ox 96 98 Oxygen Delivery Method Room Air Room Air MDM MDM MDM Narrative Medical decision making narrative: Been interpretation the patient's PA and lateral chest x-ray shows dense infiltrate in the right lung field. Final reading is similar to this. Her symptoms are consistent with pneumonia also. Patient's viral studies show positive for RSV but I would not expect this to give a single infiltrate such as this. Patient's nausea is gone. She feels much better. She walked around and her lowest saturation was 95%. She has multiple allergies to antibiotics. But she can tolerate fluoroquinolone so I think Levaquin is a good option for her. We discussed reasons to return. I will also write for some Zofran that she can have as a as needed basis. Radiography Diagnostic Testing: Clinical Impression(s) from Imaging Studies Chest X-Ray 04/12/23 12:22 IMPRESSION: Focal airspace opacification of the right lung consistent with pneumonia. Follow-up recommended to confirm clearing. Electronically Signed: Catracho Parker MD at 13:20 EST , EKG Initial EKG: Comments: My independent interpretation the patient's EKG does show sinus rhythm with tachycardic rate at 115. No ectopy. No acute ST elevation or depression. HI interval, QRS duration and QTc are normal. Discharge Plan Triage Chief Complaint: Shortness of Breath Other Complaint: Nausea/Vomiting ED Provider: Riaz Porter Dx/Rx/DC Orders Clinical Impression: Pneumonia involving right lung, RSV infection, Nausea Instructions: ED Pneumonia (Adult) Prescriptions: New levofloxacin [levofloxacin] 500 mg tablet 500 mg PO DAILY Qty: 7 0RF ondansetron [ondansetron] 4 mg tablet,disintegrating 4 mg PO Q8H PRN PRN (Reason: Nausea) Qty: 10 0RF No Action multivitamin,hi-isqc-hnwaqtcf tablet tablet 1 tab PO DAILY labetalol 200 MG tablet 600 mg PO TID nifedipine 30 MG tablet extended release 60 mg PO QHS rcxcvyy-euwfnglkztqas-bivpoxjb 1 EACH tablet 1 ea PO PRN PRN (Reason: Migraine Symptoms) calcium carbonate-vitamin D3 1 EACH tablet 1 ea PO DAILY diltiazem HCl 240 MG capsule,extended release 24 hr 240 mg PO DAILY Primary Care Provider: Claudine Bowers NP Referrals: Claudine Bowers NP, [facility] [Primary Care Provider] - 3-5 Days if not improving Disposition Disposition: Home, Self Care
--- OUTSIDE RECORDS SUMMARY | 2023-04-12 11:37 | XMS RPT_ITS | CCD ---
Author Name Unknown Address [address] [place] [address] Organization [facility] Care Team Providers Care Account Review Specialist Name Role Phone John Geiger MD Primary Care Provider JOHN GEIGER Primary Care Unavailable SHRUTHILOGRA CLEVELAND Attending Unavailable JOHN GEIGER Primary Care Unavailable FELIPE HUBER Attending Unavailable JOHN GEIGER Primary Care Unavailable Allergies Allergy Classification Reported Allergen(s) Allergy Type Date of Onset Reaction(s) Facility (18 sources) Azithromycin; Translations: [AZITHROMYCIN] Drug Allergy 10-16-19 18 Intolerance [facility] Work Phone: (3 sources) Penicillins; Translations: [PENICILLINS] Propensity to adverse reactions 04-18-19 03 [facility] (18 sources) Sulfamethoxazole / Trimethoprim; Translations: [SULFAMETHOXAZOLE-TR IMETHOPRIM] Drug Allergy 05-16-19 07 Swelling [facility] Work Phone: (18 sources) SUMAtriptan; Translations: [SUMATRIPTAN] Drug Allergy 08-06-19 13 Other: See Comments [facility] Work Phone: (15 sources) Penicillins Propensity to adverse reactions 04-18-19 03 [facility] Medications Current Medications Medication Drug Class(es) Dates Sig (Normalized) Sig (Original) cefdinir 300 mg oral capsule (1 source) Cephalosporin Antibacterial Start: 07-10-2022 End: 07-17-2022 take 1 capsule by mouth twice daily cefdinir (OMNICEF) 300 mg capsule Take 1 capsule by mouth twice daily for 7 days. 14 capsule 0 07/10/2022 07/17/2022 Active Completed/Discontinued Medications Medication Drug Class(es) Dates Sig (Normalized) Sig (Original) Blood Pressure Test Kit-Medium kit (17 sources) Start: 04-21-2018 Blood Pressure Test Kit-Medium kit 1 Device twice daily. 1 Kit 0 04/21/2018 Active Problems Active Problems Problem Classification Problem Date Documented Da te Episodic/Chronic Disorders of lipid metabolism (2 sources) Mixed hyperlipidemia; Translations: [Mixed hyperlipidemia] Chronic Essential hypertension (20 sources) Essential hypertension; Translations: [Essential (primary) hypertension] Onset: 06-16-2006 04-08-2021 Chronic Female infertility (17 sources) Female infertility; Translations: [Female infertility, unspecified] Onset: 04-18-2002 08-07-2003 Chronic Headache; including migraine (17 sources) Migraine; Translations: [Migraine, unspecified, not intractable, without status migrainosus] Onset: 08-05-2012 08-05-2012 Chronic Hypertension complicating ; childbirth and the puerperium (9 sources) Benign essential hypertension in obstetric context; Translations: [Pre-existing essential hypertension complicating , unspecified trimester] Onset: 07-14-2013 07-14-2013 Chronic Other endocrine disorders (17 sources) Polycystic ovary; Translations: [Polycystic ovarian syndrome] Onset: 04-18-2002 08-07-2003 Chronic Other screening for suspected conditions (not mental disorders or infectious disease) (2 sources) Patient encounter status; Translations: [Encounter for screening mammogram for malignant neoplasm of breast] 02-20-2022 Episodic Other upper respiratory disease (1 source) Congestion of nasal sinus; Translations: [Nasal congestion] Episodic Other upper respiratory infections (2 sources) Bacterial sinusitis; Translations: [Chronic sinusitis, unspecified] Onset: 06-19-2022 Chronic Other upper respiratory infections (1 source) Upper respiratory infection; Translations: [Acute upper respiratory infection, unspecified] Episodic Otitis media and related conditions (1 source) Acute left otitis media; Translations: [Otitis media, unspecified, left ear] Episodic Past or Other Problems Problem Classification Problem Date Documented Da te Episodic/Chronic Bacterial infection; unspecified site (1 source) Other specified bacterial agents as the cause of diseases classified elsewhere; Translations: [Bacterial sinusitis] Onset: 06-19-2022 Episodic Other complications of ; puerperium affecting management of mother (9 sources) Advanced maternal age ; Translations: [Advanced maternal age (AMA) in ] Onset: 07-29-2013 04-08-2021 Episodic Other complications of (9 sources) Nausea and vomiting; Translations: [Vomiting of , unspecified] Onset: 07-29-2013 04-08-2021 Episodic Other and delivery including normal (9 sources) Early stage of ; Translations: [Encounter for supervision of normal , unspecified, unspecified trimester] Onset: 07-14-2013 07-14-2013 Episodic Other upper respiratory disease (1 source) Nasal congestion; Translations: [Sinus congestion] Onset: 08-20-2022 Episodic Residual codes; unclassified (17 sources) FH: Congenital anomaly; Translations: [Family history of other congenital malformations, deformations and chromosomal abnormalities] Onset: 07-29-2013 04-08-2021 Episodic Residual codes; unclassified (17 sources) FH: Hypertension; Translations: [Family history of ischemic heart disease and other diseases of the circulatory system] Onset: 09-02-2013 09-02-2013 Episodic Results Test Name Value Interpretation Reference Range Facil ity Vital Signs Date Time Vital Sign Value Performing Clinician Faci lity 08-20-2022 11:20-0400 Diastolic blood pressure 99 mm[Hg] Ra Podlogar TAKER OFF [employer]SUPERVISOR [employer] Work Phone: [facility] 08-20-2022 11:20-0400 Heart rate 100 /min Ra Podlogar TAKER [employer]PER[employer]OR [employer] Work Phone: [facility] 08-20-2022 11:20-0400 Systolic blood pressure 140 mm[Hg] Ra Podlogar TAKER [employer]SUPER[employer]OR [employer] Work Phone: [facility] 08-20-2022 10:59-0400 Body temperature 96.3 [degF] Ra Podlogar TAKER [employer]SUPER[employer]OR [employer] Work Phone: [facility] 08-20-2022 10:59-0400 Body weight 96.98 kg Ra Podlogar TAKER [employer]SUPERVISOR [employer] Work Phone: [facility] 08-20-2022 10:59-0400 Respiratory rate 18 /min Ra Podlogar TAKER [employer]SUPERVISOR [employer] Work Phone: [facility] 08-20-2022 10:59-0400 SaO2% (BldA) [Mass fraction] 98 % Ra Bowers TAKER [employer]PER[employer]OR [employer] Work Phone: [facility] 07-10-2022 15:32-0400 Body temperature 98.1 [degF] Hannah Mary TAKER [employer]SUPERVISOR [employer] Work Phone: [facility] 07-10-2022 15:32-0400 Body weight 97.89 kg Hannah Mary TAKER [employer]SUPER[employer]OR [employer] Work Phone: [facility] 07-10-2022 15:32-0400 Diastolic blood pressure 82 mm[Hg] Hannah Mary TAKER [employer].SUPERVISOR [employer] Work Phone: [facility] 07-10-2022 15:32-0400 Heart rate 94 /min Hannah Mary TAKER [employer].SUPERVISOR [employer] Work Phone: [facility] 07-10-2022 15:32-0400 Respiratory rate 16 /min Hannah Mary TAKER [employer]SUPERVISOR [employer] Work Phone: [facility] 07-10-2022 15:32-0400 SaO2% (BldA) [Mass fraction] 97 % Hannah Mary TAKER [employer]SUPERVISOR [employer] Work Phone: [facility] 07-10-2022 15:32-0400 Systolic blood pressure 126 mm[Hg] Hannah Mary TAKER [employer]SUPER[employer]OR [employer] Work Phone: [facility] 06-19-2022 14:36-0500 Body temperature 96.8 [degF] Felipe Huber MD Work Phone: [facility] 06-19-2022 14:36-0500 Body weight 97.07 kg Felipe Huber MD Work Phone: [facility] 06-19-2022 14:36-0500 Diastolic blood pressure 90 mm[Hg] Felipe Huber MD Work Phone: [facility] 06-19-2022 14:36-0500 Heart rate 94 /min Felipe Huber MD Work Phone: [facility] 06-19-2022 14:36-0500 SaO2% (BldA) [Mass fraction] 97 % Felipe Huber MD Work Phone: [facility] 06-19-2022 14:36-0500 Systolic blood pressure 128 mm[Hg] Felipe Huber MD Work Phone: [facility] 02-12-2022 10:45-0400 Body weight 95.89 kg Ra Podlogar TAKER [employer]SUPER[employer] Work Phone: [facility] 02-12-2022 10:45-0400 Diastolic blood pressure 87 mm[Hg] Ra Podlogar TAKER [employer]SUPERVISOR [employer] Work Phone: [facility] 02-12-2022 10:45-0400 Heart rate 97 /min Ra Podlogar TAKER OFF [employer]SUPERVISOR [employer] Work Phone: [facility] 02-12-2022 10:45-0400 Respiratory rate 16 /min Ra Podlogar TAKER [employer]YING [employer]SUPERVISOR [employer] Work Phone: [facility] 02-12-2022 10:45-0400 SaO2% (BldA) [Mass fraction] 97 % Ra Podlogar TAKER [employer]SUPER[employer]OR [employer] Work Phone: [facility] 02-12-2022 10:45-0400 Systolic blood pressure 132 mm[Hg] Ra Podlogar TAKER OFF [employer]SUPERVISOR [employer] Work Phone: [facility] Encounters Encounter Date Encounter Type Care Provider Facility Start: 03-25-2023 ambulatory John Geiger MD Work Phone: [facility] [place] Start: 03-19-2023 Refill John Geiger MD Work Phone: [facility] [place] Procedures Date Procedure Procedure Detail Performing Clinician Start: 02-20-2022 Lipid 1996 panel - S jeb or Plasma Screen Wstr Start: 02-20-2022 End: 02-20-2022 Mammography Bulk Order Provider Start: 02-09-2020 Mammography Joe He haily DO Work Phone: Start: 03-03-2018 Adult depression scr eening assessment Joe Pitts DO Work Phone: Plan of Treatment Date Care Activity Detail Author Start: 02-20-2027 Lipid 1996 panel - Serum or Plasma Lipid Screening [facility] Start: 02-20-2027 Lipid panel Lipid Screening [facility] Start: 02-20-2025 Diabetes Screening Diabetes Screening [facility] Start: 12-17-2023 Urine microalbumin profile [facility] Start: 08-21-2023 ANNUAL PCP TEAM CHRONIC DISEASE VISIT ANNUAL PCP TEAM CHRONIC DISEASE VISIT [facility] Start: 06-20-2023 ANNUAL PCP TEAM CHRONIC DISEASE VISIT ANNUAL PCP TEAM CHRONIC DISEASE VISIT [facility] Start: 03-11-2023 ANNUAL PCP TEAM CHRONIC DISEASE VISIT ANNUAL PCP TEAM CHRONIC DISEASE VISIT [facility] Start: 02-20-2023 Mammography [facility] Start: 02-20-2023 Screening for malignant neoplasm of breast Mammogram Screening [facility] Start: 02-12-2023 ANNUAL PCP TEAM CHRONIC DISEASE VISIT ANNUAL PCP TEAM CHRONIC DISEASE VISIT [facility] Start: 12-12-2022 Covid-19 Vaccine () Covid-19 Vaccine () [facility] Start: 10-12-2022 HPV TESTING HPV TESTING [facility] Start: 10-12-2022 PAP TESTING PAP TESTING [facility] Start: 10-12-2022 Screening for malignant neoplasm of cervix [facility] Start: 2022 Cologuard (FIT-DNA) Cologuard (FIT-DNA) [facility] Start: 2022 Colonoscopy Colonoscopy [facility] Start: 2022 Colorectal Cancer Screening Colorectal Cancer Screening [facility] Start: [address] Colonography [facility] Start: 2022 Fecal Occult Blood Fecal Occult Blood [facility] Start: 2022 Screening for malignant neoplasm of colon [facility] Start: 2022 Sigmoidoscopy Sigmoidoscopy [facility] Start: 08-30-2022 ANNUAL PCP TEAM CHRONIC DISEASE VISIT ANNUAL PCP TEAM CHRONIC DISEASE VISIT [facility] Start: 04-13-2022 DEPRESSION ASSESSMENT DEPRESSION ASSESSMENT [facility] Start: 02-12-2022 End: 04-14-2022 Basic metabolic 2000 panel - Serum or Plasma BASIC METABOLIC PNL Lab Routine Hypertension, essential Expected: 02/12/2022, Expires: 04/14/2022 [facility] Work Phone: Immunizations Immunization Date Immunization Notes Care Provider Ankit [facility] 01-14-2023 influenza virus vaccine, unspecified formulation John Geiger MD Work Phone: [facility] 02-04-2022 influenza virus vaccine, unspecified formulation aR Bowers APRN.CNP Work Phone: [facility] 11-29-2019 influenza, high dose seasonal, preservative-free Joe Gisselle DO Work Phone: [facility] 02-15-2019 influenza, seasonal, injectable Joe Gisselle DO Work Phone: [facility] 04-19-2018 hepatitis B vaccine, adult dosage Joe Gisselle DO Work Phone: [facility] Work Phone: 01-01-2018 influenza, injectabl e, quadrivalent, contains preservative Joe Gisselle DO Work Phone: [facility] Work Phone: 11-16-2017 hepatitis B vaccine, adult dosage Joe Gisselle DO Work Phone: [facility] Work Phone: 10-13-2017 hepatitis B vaccine, adult dosage Joe Gisselle DO Work Phone: [facility] 01-25-2014 influenza, seasonal, injectable Joe Gisselle DO Work Phone: [facility] Work Phone: 12-16-2013 tetanus toxoid, reduced diphtheria toxoid, and acellular pertussis vaccine, adsorbed Joe Gisselle DO Work Phone: [facility] 05-16-2006 tetanus toxoid, reduced diphtheria toxoid, and acellular pertussis vaccine, adsorbed Joe Gisselle DO Work Phone: [facility] Work Phone: Payers Date Payer Category Payer Medicaid [id number] 2022 Private Health Insurance [id number] 2022 Unknown [id number] 2013 Medicaid [employer] [id number] 2013-Present [phone] [address] [place] [address] Medicaid [id number] 2013 Medicaid [id number] Social History Date Type Detail Facility Start: 07-14-2013 End: 02-12-2022 Tobacco smoking status NHIS Ex-smoker [facility] End: 04-13-1996 History of tobacco use Current smoker [facility] End: 04-13-1996 History of tobacco use Cigarette Smoker [facility] Start: 07-14-2013 End: 02-12-2022 Tobacco use and exposure Smokeless tobacco non-user [facility] Start: 03-06-2021 End: 08-20-2022 Alcohol intake Lifetime non-drinker (finding) [facility] Start: 03-14-2020 End: 03-11-2022 History SDOH Alcohol Frequency 1 [facility] Start: 03-01-2019 History SDOH Alcohol Comment rare [facility] Start: 1975 Sex Assigned At Female C [facility] Start: 02-11-2022 End: 03-11-2022 History SDOH Alcohol Std Drinks 0 [facility] Start: 02-11-2022 End: 03-11-2022 History SDOH Social Connections Phone 5 [facility] Start: 02-11-2022 History SDOH Social Connections Jewish 98 [facility] Start: 02-11-2022 End: 03-11-2022 History SDOH Social Connections Meetings 3 [facility] Start: 02-11-2022 End: 03-11-2022 History SDOH Stress 2 [facility] Start: 02-10-2022 End: 03-11-2022 Exposure to SARS-CoV-2 (event) Not sure [facility] Start: 03-11-2022 History SDOH Physica l Activity MPS 9 [facility] Start: 02-11-2022 End: 08-20-2022 History of Social function [facility] Start: 02-11-2022 End: 08-20-2022 Social connection and isolation panel [facility] How often do you att end anabaptism or episcopalian services? Patient refused [facility] Do you belong to any clubs or organizations such as anabaptism groups, unions, fraternal or athletic groups, or school groups? Yes [facility] Are you now , , , , never or living with a partner? [facility] How often to you hav e a drink containing alcohol? Never [facility] Do you feel stress - tense, restless, nervous, or anxious, or unable to sleep at night because your mind is troubled all the time - these days [OSQ] Only a little [facility] (I/We) worried esvin er (my/our) food would run out before (I/we) got money to buy more. Never true [facility] In the past 12 month s, was there a time when you were not able to pay the mortgage or rent on time? No [facility] Start: 08-20-2021 Gender identity Identifies as female gender (finding) [facility] Do you feel stress - tense, restless, nervous, or anxious, or unable to sleep at night because your mind is troubled all the time - these days [OSQ] Not at all [facility] Clinical Notes 08-05-2012 to 03-25-2023 Telephone Encounter - Sylvie Jefferson LPN - 03/23/2023 9:34 AM ESTTelephone Encounter - Ra Bowers APRN.CNP - 03/23/2023 9:28 AM Ryder Bowers APRN.CNP - 08/20/2022 10:49 AM EDT Note Date & Type Note Facility 03-25-2023 Note Patient Outreach (IN [facility]) NANCY MONTES ([id number]) 1975 F [facility] Date Time Provider Department 03/25/23 JOHN GEIGER During your visit today, we recorded the following information about you: Allergies As of Date: 03/25/2023 Noted Allergy Reaction IMITREX (SUMATRIPTAN) 08/05/2012 14 - Other: See Comments Comments: Cardiac Arrest BACTRIM DS (SULFAMETHOXAZOLE-TRIM*05/16/19 07 7 - Swelling PENICILLINS 04/18/2002 Comments: facial swelling ZITHROMAX (AZITHROMYCIN) 10/15/2017 5 - Intolerance Comments: Patient reports feels like life sucked out of me. Date Reviewed: 08/20/2022 Reviewed by: Brunilda Vines LPN - Fully Assessed Visit Diagnosis:Encounter for screening mammogram for breast cancer [Z12.31] Order(s):[facility] SCREENING [[id number]] Order #: [id number] FUTURE Prescriptions as of 03/30/2023 - labetalol (TRANDATE) 300 mg tablet Take 2 tablets by mouth three times a day. - spironolactone (ALDACTONE) 25 mg tablet Take 1 tablet by mouth once daily. - dilTIAZem CR (TIAZAC,TAZTIA XT) 240 mg 24 hr capsule Take 1 capsule by mouth once daily. - Blood Pressure Test Kit-Medium kit 1 Device twice daily. - Multivitamin capsule Take 1 capsule by mouth once daily. - CALCIUM CARBONATE/VITAMIN D2 (CALCIUM + VITAMIN D ORAL) Take by mouth twice daily. Problem List As Of Date 03/25/2023 Noted Resolved POLYCYSTIC OVARIES [E28.2] 04/18/2002 BENIGN HYPERTENSION [I10] 04/18/2002 06/16/2006 FEMALE INFERTILITY NOS [N97.9] 04/18/2002 Hypertension, essential [I10] 06/16/2006 Depressive disorder, not elsewhere classified [*08/05/2012 11/23/2018 Migraine [G43.909] 08/05/2012 Family history of defects [Z82.79] 07/29/2013 Family history of hypertension [Z82.49] 09/02/2013 Mental disorder [F99] 11/23/2018 Encounter Status:Closed by RAJANI, PRODUSER on 03/30/23 [facility] 03-23-2023 Miscellaneous Notes Left a message for pt to call the office and ask to speak to a nurse. Sylvie Jefferson LPN Patient is due for follow-up. Please assist in scheduling. Ra Bowers APRN.LORENA JUVENAL-08/20/22 Labs-02/20/22 NOV-none Cristin Hernandez LPN documented in this encounter [facility] 08-20-2022 Note HNO ID: [id number] Author: Ra Bowers APRN.LORENA Service: ? Author Type: Nurse Practitioner Type: Progress Notes Filed: 08/20/2022 11:51 AM Note Text: 08/20/2022 Patient presents with: F/U 6 months SUBJECTIVE: This is a 46 year old that is here today for Above Complaints.. HTN: Patient is compliant with meds Yes Monitors bp at home: occasionally Denies side effects: Yes. Chest pain: No. Dyspnea: No. Edema: No. Palpitations: No. Syncope: No. Headache: No. Dizziness: No. Thursday started with sinus congestion. Taking mucinex which does not seem help. Has nasal congestion and rhinorrhea. Denies fevers, chills, sore throat, ear pain, cough, chest congestion, SOB, dyspnea, or wheezing PAST MEDICAL HISTORY Diagnosis Date Essential hypertension, benign irregular heartbeats, FRACTURE AGE 7 RIGHT ARM Infertility, female Mental disorder depression w/hx of suicidal ideation Migraines Polycystic ovaries infertility ALLERGIES Imitrex [Sumatriptan], Bactrim Ds [Sulfamethoxazole-Trimethoprim] , Penicillins, and Zithromax [Azithromycin] MEDICATIONS Current Outpatient Medications Medication Sig labetalol (TRANDATE) 300 mg tablet Take 2 tablets by mouth three times daily. spironolactone (ALDACTONE) 25 mg tablet Take 1 tablet by mouth once daily. dilTIAZem CR (TIAZAC,TAZTIA XT) 240 mg 24 hr capsule Take 1 capsule by mouth once daily. Blood Pressure Test Kit-Medium kit 1 Device twice daily. Multivitamin capsule Take 1 capsule by mouth once daily. CALCIUM CARBONATE/VITAMIN D2 (CALCIUM + VITAMIN D ORAL) Take by mouth twice daily. No current facility-administered medications for this visit. Medications and allergies reviewed by this provider. SOCIAL HISTORY Social History Tobacco Use Smoking status: Former Years: 1.00 Types: Cigarettes Quit date: 04/13/1996 Years since quittin.3 Smokeless tobacco: Never Vaping Use Vaping Use: Never used Substance Use Topics Alcohol use: Never Comment: rare Drug use: No REVIEW OF SYSTEMS All other reviewed and negative other than HPI. OBJECTIVE: BP 140/99 Pulse 100 Temp (!) 35.7 ?C (96.3 ?F) Resp 18 Wt 97 kg (213 lb 12.8 oz) LMP 07/03/2021 SpO2 98% BMI 34.77 kg/m? . Vital signs reviewed by this provider. APPEARANCE Well appearing, alert, in no acute distress, well-hydrated, well nourished. EYES conjunctiva and sclera normal. EARS External ears normal, canals clear HEART RRR with normal S1 and S2, no murmurs, no gallops, no JVD appreciated LUNG clear to auscultation. No wheezes, rhonchi or rales SKIN Skin color, texture, turgor normal, no suspicious rashes or lesions to exposed skin BP CONTROLLED (<130/80) due on 11/24/2019 COVID-19 VACCINE(4 - Booster for Moderna series) due on 06/09/2021 DEPRESSION ASSESSMENT due on 04/13/2022 PAP TESTING due on 10/12/2022 HPV TESTING due on 10/12/2022 MAMMOGRAM due on 02/20/2023 ANNUAL PCP TEAM CHRONIC DISEASE VISIT due on 06/20/2023 DTAP,TDAP,TD(3 - Td or Tdap) due on 12/17/2023 HEPATITIS B Completed INFLUENZA Completed HEPATITIS C SCREENING Completed HIV SCREENING Completed ASSESSMENT/PLAN: 1. Hypertension, essential - ICD9: 401.9, ICD10: I10 (primary diagnosis) - suboptimal control - Continue current medication(s) - Encouraged dietary sodium restriction/DASH diet - Recommended regular aerobic exercise. - Recommend home blood pressure monitoring, to bring results in on next visit - Recheck in 1 month, sooner should new symptoms or problems arise. - Goal of BP <140/90 - Recommend home or pharmacy blood pressure monitoring - Recommended no refined sugar, low refined starch, healthy oil intake (olive oil), healthy protein (fish) along the lines of the Mediterranean diet. 2. Sinus congestion - ICD9: 478.19, ICD10: R09.81 - may use OTC Flonase and Claritin or zyrtec - follow-up if symptoms fail to improve Ra Bowers APRN.[employer] Prescription instructions reviewed with patient as applicable. Patient advised if symptoms do not improve or if symptoms worsen sooner, to contact their primary care physician. Potential red flag symptoms discussed with the patient. Reviewed appropriate action plan to take if red flag symptoms occur. Patient agreeable to treatment plan. I spent a total of 25 minutes on the date of the service which included preparing to see the patient, [id number] patient care, completing clinical documentation, obtaining and/or reviewing separately obtained history, performing a medically appropriate examination, and counseling and educating the patient/family/caregiver. [facility] 08-20-2022 History of Presen t illness Narrative 08/20/2022 Patient presents with: F/U 6 months SUBJECTIVE: This is a 46 year old that is here today for Above Complaints.. HTN: Patient is compliant with meds Yes Monitors bp at home: occasionally Denies side effects: Yes. Chest pain: No. Dyspnea: No. Edema: No. Palpitations: No. Syncope: No. Headache: No. Dizziness: No. Thursday started with sinus congestion. Taking mucinex which does not seem help. Has nasal congestion and rhinorrhea. Denies fevers, chills, sore throat, ear pain, cough, chest congestion, SOB, dyspnea, or wheezing PAST MEDICAL HISTORY Diagnosis Date Essential hypertension, benign irregular heartbeats, FRACTURE AGE 7 RIGHT ARM Infertility, female Mental disorder depression w/hx of suicidal ideation Migraines Polycystic ovaries infertility ALLERGIES Imitrex [Sumatriptan], Bactrim Ds [Sulfamethoxazole-Trimethoprim] , Penicillins, and Zithromax [Azithromycin] MEDICATIONS Current Outpatient Medications Medication Sig labetalol (TRANDATE) 300 mg tablet Take 2 tablets by mouth three times daily. spironolactone (ALDACTONE) 25 mg tablet Take 1 tablet by mouth once daily. dilTIAZem CR (TIAZAC,TAZTIA XT) 240 mg 24 hr capsule Take 1 capsule by mouth once daily. Blood Pressure Test Kit-Medium kit 1 Device twice daily. Multivitamin capsule Take 1 capsule by mouth once daily. CALCIUM CARBONATE/VITAMIN D2 (CALCIUM + VITAMIN D ORAL) Take by mouth twice daily. No current facility-administered medications for this visit. Medications and allergies reviewed by this provider. SOCIAL HISTORY Social History Tobacco Use Smoking status: Former Years: 1.00 Types: Cigarettes Quit date: 04/13/1996 Years since quittin.3 Smokeless tobacco: Never Vaping Use Vaping Use: Never used Substance Use Topics Alcohol use: Never Comment: rare Drug use: No REVIEW OF SYSTEMS All other reviewed and negative other than HPI. OBJECTIVE: BP 140/99 Pulse 100 Temp (!) 35.7 C (96.3 F) Resp 18 Wt 97 kg (213 lb 12.8 oz) LMP 07/03/2021 SpO2 98% BMI 34.77 kg/m . Vital signs reviewed by this provider. APPEARANCE Well appearing, alert, in no acute distress, well-hydrated, well nourished. EYES conjunctiva and sclera normal. EARS External ears normal, canals clear HEART RRR with normal S1 and S2, no murmurs, no gallops, no JVD appreciated LUNG clear to auscultation. No wheezes, rhonchi or rales SKIN Skin color, texture, turgor normal, no suspicious rashes or lesions to exposed skin BP CONTROLLED (<130/80) due on 11/24/2019 COVID-19 VACCINE(4 - Booster for Moderna series) due on 06/09/2021 DEPRESSION ASSESSMENT due on 04/13/2022 PAP TESTING due on 10/12/2022 HPV TESTING due on 10/12/2022 MAMMOGRAM due on 02/20/2023 ANNUAL PCP TEAM CHRONIC DISEASE VISIT due on 06/20/2023 DTAP,TDAP,TD(3 - Td or Tdap) due on 12/17/2023 HEPATITIS B Completed INFLUENZA Completed HEPATITIS C SCREENING Completed HIV SCREENING Completed ASSESSMENT/PLAN: 1. Hypertension, essential - ICD9: 401.9, ICD10: I10 (primary diagnosis) - suboptimal control - Continue current medication(s) - Encouraged dietary sodium restriction/DASH diet - Recommended regular aerobic exercise. - Recommend home blood pressure monitoring, to bring results in on next visit - Recheck in 1 month, sooner should new symptoms or problems arise. - Goal of BP <140/90 - Recommend home or pharmacy blood pressure monitoring - Recommended no refined sugar, low refined starch, healthy oil intake (olive oil), healthy protein (fish) along the lines of the Mediterranean diet. 2. Sinus congestion - ICD9: 478.19, ICD10: R09.81 - may use OTC Flonase and Claritin or zyrtec - follow-up if symptoms fail to improve Ra Bowers APRN.LORENA Prescription instructions reviewed with patient as applicable. Patient advised if symptoms do not improve or if symptoms worsen sooner, to contact their primary care physician. Potential red flag symptoms discussed with the patient. Reviewed appropriate action plan to take if red flag symptoms occur. Patient agreeable to treatment plan. I spent a total of 25 minutes on the date of the service which included preparing to see the patient, [id number] patient care, completing clinical documentation, obtaining and/or reviewing separately obtained history, performing a medically appropriate examination, and counseling and educating the patient/family/caregiver. documented in this encounter [facility] 07-10-2022 Note HNO ID: [id number] Author: Hannah Hernandez APRN.LORENA Service: ? Author Type: Nurse Practitioner Type: Progress Notes Filed: 07/10/2022 3:38 PM Note Text: Subjective The history is provided by the patient. No foreign language teacher was used. HPI Nancy Montes is a 46 year old female who presents today for CC of left ear pain for one day and getting worse. She is also having ringing in the ear. She has had congestion and cough for over a week. Denies any fever, vomiting or diarrhea. She is using mucinex. Recent sinusitis. BP 126/82 Pulse 94 Temp 36.7 ?C (98.1 ?F) (Tympanic) Resp 16 Wt 97.9 kg (215 lb 12.8 oz) LMP 07/03/2021 SpO2 97% BMI 35.10 kg/m? Social History Tobacco Use Smoking status: Former Years: 1.00 Types: Cigarettes Quit date: 04/13/1996 Years since quittin.2 Smokeless tobacco: Never Vaping Use Vaping Use: Never used Substance Use Topics Alcohol use: Never Comment: rare Drug use: No PAST MEDICAL HISTORY Diagnosis Date Essential hypertension, benign irregular heartbeats, FRACTURE AGE 7 RIGHT ARM Infertility, female Mental disorder depression w/hx of suicidal ideation Migraines Polycystic ovaries infertility I have confirmed and edited as necessary, the [facility] Review of Systems Constitutional: Negative for chills, fever and malaise/fatigue. HENT: Positive for congestion, ear pain and sinus pain. Negative for sore throat. Respiratory: Positive for cough. Negative for sputum production, shortness of breath and wheezing. Cardiovascular: Negative for chest pain. Gastrointestinal: Negative for abdominal pain, diarrhea, nausea and vomiting. Musculoskeletal: Negative for myalgias. Neurological: Negative for headaches. Objective Physical Exam Vitals and nursing note reviewed. HENT: Head: Normocephalic and atraumatic. Right Ear: Tympanic membrane, ear canal and external ear normal. Left Ear: Ear canal and external ear normal. A middle ear effusion (purulent) is present. Tympanic membrane is erythematous and bulging. Nose: Mucosal edema, congestion and rhinorrhea present. Right Sinus: No maxillary sinus tenderness or frontal sinus tenderness. Left Sinus: No maxillary sinus tenderness or frontal sinus tenderness. Mouth/Throat: Pharynx: Uvula midline. No oropharyngeal exudate or posterior oropharyngeal erythema. Cardiovascular: Rate and Rhythm: Normal rate and regular rhythm. Heart sounds: Normal heart sounds. Pulmonary: Effort: Pulmonary effort is normal. Breath sounds: Normal breath sounds. Lymphadenopathy: Head: Right side of head: No submental, submandibular or tonsillar adenopathy. Left side of head: No submental, submandibular or tonsillar adenopathy. Cervical: No cervical adenopathy. Skin: General: Skin is warm and dry. Neurological: Mental Status: She is alert. Psychiatric: Mood and Affect: Affect normal. ASSESSMENT/PLAN: 1. Acute otitis media, left - ICD9: 382.9, ICD10: H66.92 (primary diagnosis) - Will begin treatment with omnicef, pcn allergy - Supportive care with plenty of fluids, rest, and analgesia prn. - Follow up in 7 days if symptoms persist or worsen. 2. URI with cough and congestion - ICD9: 465.9, ICD10: J06.9 - Discussed viral etiology and rationale for treatment. - Symptomatic treatment with prn analgesia - Supportive care with fluids and rest Diagnosis and treatment plan were discussed and questions were answered to the patient's satisfaction. Pt acknowledged understanding of concepts and follow up plan. Specific signs and symptoms that would indicate the need for higher level of care were discussed in detail warranting prompt ER evaluation. Hannah Hernandez APRN.CNP [facility] 07-10-2022 Instructions Hannah Hernandez APRN.CNP - 07/10/2022 3:38 PM EDT Tylenol (generic acetaminophen) 500 mg-2 tabs every 8 hrs. as needed for fever and aches Ibuprofen 600 mg (3-200mg tablets) every 6 hours Zyrtec 10 mg By mouth daily at bedtime Flonase or Nasonex 2 sprays in each nostril once a day Follow up with PCP as needed. Probiotic: Vannessa Jackson, Align. Do not take with antibiotic, make sure 2 hours between. * Seek medical care immediately, call 911, go to ER if you have chest pain, difficulty breathing, shortness of breath, inability to swallow. documented in this encounter [facility] 07-10-2022 History of Presen t illness Narrative Subjective The history is provided by the patient. No foreign language teacher was used. HPI Nancy Montes is a 46 year old female who presents today for CC of left ear pain for one day and getting worse. She is also having ringing in the ear. She has had congestion and cough for over a week. Denies any fever, vomiting or diarrhea. She is using mucinex. Recent sinusitis. BP 126/82 Pulse 94 Temp 36.7 C (98.1 F) (Tympanic) Resp 16 Wt 97.9 kg (215 lb 12.8 oz) LMP 07/03/2021 SpO2 97% BMI 35.10 kg/m Social History Tobacco Use Smoking status: Former Years: 1.00 Types: Cigarettes Quit date: 04/13/1996 Years since quittin.2 Smokeless tobacco: Never Vaping Use Vaping Use: Never used Substance Use Topics Alcohol use: Never Comment: rare Drug use: No PAST MEDICAL HISTORY Diagnosis Date Essential hypertension, benign irregular heartbeats, FRACTURE AGE 7 RIGHT ARM Infertility, female Mental disorder depression w/hx of suicidal ideation Migraines Polycystic ovaries infertility I have confirmed and edited as necessary, the [facility] Review of Systems Constitutional: Negative for chills, fever and malaise/fatigue. HENT: Positive for congestion, ear pain and sinus pain. Negative for sore throat. Respiratory: Positive for cough. Negative for sputum production, shortness of breath and wheezing. Cardiovascular: Negative for chest pain. Gastrointestinal: Negative for abdominal pain, diarrhea, nausea and vomiting. Musculoskeletal: Negative for myalgias. Neurological: Negative for headaches. Objective Physical Exam Vitals and nursing note reviewed. HENT: Head: Normocephalic and atraumatic. Right Ear: Tympanic membrane, ear canal and external ear normal. Left Ear: Ear canal and external ear normal. A middle ear effusion (purulent) is present. Tympanic membrane is erythematous and bulging. Nose: Mucosal edema, congestion and rhinorrhea present. Right Sinus: No maxillary sinus tenderness or frontal sinus tenderness. Left Sinus: No maxillary sinus tenderness or frontal sinus tenderness. Mouth/Throat: Pharynx: Uvula midline. No oropharyngeal exudate or posterior oropharyngeal erythema. Cardiovascular: Rate and Rhythm: Normal rate and regular rhythm. Heart sounds: Normal heart sounds. Pulmonary: Effort: Pulmonary effort is normal. Breath sounds: Normal breath sounds. Lymphadenopathy: Head: Right side of head: No submental, submandibular or tonsillar adenopathy. Left side of head: No submental, submandibular or tonsillar adenopathy. Cervical: No cervical adenopathy. Skin: General: Skin is warm and dry. Neurological: Mental Status: She is alert. Psychiatric: Mood and Affect: Affect normal. ASSESSMENT/PLAN: 1. Acute otitis media, left - ICD9: 382.9, ICD10: H66.92 (primary diagnosis) - Will begin treatment with omnicef, pcn allergy - Supportive care with plenty of fluids, rest, and analgesia prn. - Follow up in 7 days if symptoms persist or worsen. 2. URI with cough and congestion - ICD9: 465.9, ICD10: J06.9 - Discussed viral etiology and rationale for treatment. - Symptomatic treatment with prn analgesia - Supportive care with fluids and rest Diagnosis and treatment plan were discussed and questions were answered to the patient's satisfaction. Pt acknowledged understanding of concepts and follow up plan. Specific signs and symptoms that would indicate the need for higher level of care were discussed in detail warranting prompt ER evaluation. Hannah Hernandez APRN.LORENA documented in this encounter [facility] 07-07-2022 Miscellaneous Notes Pt notified via [employer]. Advised to call in and set up appt for cough. Rebecca Paniagua Ma Needs OV for new symptoms of cough. Recommend OTC delsym and mucinex until she can get in for appointment. documented in this encounter [facility] 06-19-2022 Note HNO ID: [id number] Author: Felipe Huber MD Service: ? Author Type: Physician Type: Progress Notes Filed: 06/19/2022 4:23 PM Note Text: Chief Complaint Patient presents with: Sinus Infection,frequent/recurring HPI Nancy Montes is a 46 year old female who presents here today for sinus infection. Symptoms start about 4 weeks ago. Had what she felt was a cold. Had yellow green nasal drainage and now is clear to slight yellow. Has post nasal drainage. No sore throat but has a productive cough with green/yellow mucus. No ear pain. Has pressure above and below the left eye. Yesterday felt feverish and chilled. No nausea, vomiting, diarrhea, shortness of breath, wheezing or body aches. Has noticed some soft tissue swelling around the left eye. No pain with moving eyes. Past medical history, appointments, medications, allergies reviewed. Previous Medical History PAST MEDICAL HISTORY Diagnosis Date Essential hypertension, benign irregular heartbeats, FRACTURE AGE 7 RIGHT ARM Infertility, female Mental disorder depression w/hx of suicidal ideation Migraines Polycystic ovaries infertility Previous Surgical History PAST SURGICAL HISTORY Procedure Laterality Date BREAST BIOPSY Left 02/2019 DELIVERY ONLY 02/17/14 , low transverse OVARY SURGERY HX dermoid cyst removal PAST SURGICAL HISTORY OF Right 2010 surgery on right eye Family History FAMILY HISTORY Problem Relation Age of Onset Hypertension Mother Thyroid Mother Kidney Disease Mother Psychiatry Mother DEPRESSION Hypertension Father Heart Father cabg Heart Maternal Grandmother Emphysema Maternal Grandmother Hypertension Maternal Grandmother Cancer Maternal Grandfather lung cancer Diabetes Paternal Grandmother Arthritis Paternal Grandmother Hypertension Paternal Grandmother Cancer Paternal Grandfather SKIN CANCER Seizures Brother other (celiac) Brother Patient Allergies ALLERGIES Allergen Reactions Imitrex [Sumatripta* Other: See Comments Cardiac Arrest Bactrim Ds [Sulfame* Swelling Penicillins facial swelling Zithromax [Azithrom* Intolerance Patient reports feels like life sucked out of me. Current Medications Current Outpatient Medications on File Prior to Visit Medication Sig labetalol (TRANDATE) 300 mg tablet Take 2 tablets by mouth three times daily. spironolactone (ALDACTONE) 25 mg tablet Take 1 tablet by mouth once daily. dilTIAZem CR (TIAZAC,TAZTIA XT) 240 mg 24 hr capsule Take 1 capsule by mouth once daily. Multivitamin capsule Take 1 capsule by mouth once daily. CALCIUM CARBONATE/VITAMIN D2 (CALCIUM + VITAMIN D ORAL) Take by mouth twice daily. Blood Pressure Test Kit-Medium kit 1 Device twice daily. No current facility-administered medications on file prior to visit. Social History Social History Tobacco Use Smoking status: Former Years: 1.00 Types: Cigarettes Quit date: 04/13/1996 Years since quittin.2 Smokeless tobacco: Never Vaping Use Vaping Use: Never used Substance Use Topics Alcohol use: Never Comment: rare Drug use: No Review of Symptoms REVIEW OF SYSTEMS See HPI EXAM: BP 128/90 (BP Site: Right Arm, BP Position: Sitting, BP Cuff Size: Large Adult) Pulse 94 Temp 36 ?C (96.8 ?F) (Tympanic) Wt 97.1 kg (214 lb) LMP 07/03/2021 SpO2 97% BMI 34.80 kg/m? General Appearance: Well appearing, alert, in no acute distress, well-hydrated, well nourished.. Eyes: Anicteric sclera. Pupils are equally round and reactive to light. Extraocular movements are intact. . Ears: External ears normal, canals clear. Nose/Sinuses: Nares normal, septum midline, mucosa normal, no drainage has ethmoid sinus tenderness on the left. Mild soft tissue swelling around the left eye. Oropharynx: Lips, mucosa, and tongue normal, teeth and gums normal, oropharynx normal. Neck: Supple, no adenopathy; thyroid symmetric, normal size, no bruits. Lungs: Lungs clear to auscultation. No wheezing, rhonchi, rales.. Heart: RRR without murmur, gallop, or rubs. No ectopy. Health Maintenance List BP CONTROLLED (<130/80) due on 11/24/2019 COVID-19 VACCINE(4 - Booster for Moderna series) due on 06/09/2021 DEPRESSION ASSESSMENT due on 04/13/2022 PAP TESTING due on 10/12/2022 HPV TESTING due on 10/12/2022 MAMMOGRAM due on 02/20/2023 ANNUAL PCP TEAM CHRONIC DISEASE VISIT due on 03/11/2023 DTAP,TDAP,TD(3 - Td or Tdap) due on 12/17/2023 HEPATITIS B Completed INFLUENZA Completed HEPATITIS C SCREENING Completed HIV SCREENING Completed Data reviewed A/P ASSESSMENT/PLAN: 1. Bacterial sinusitis - ICD9: 473.9, 041.9, ICD10: J32.9, B96.89 - Will begin treatment with as per antibiotic as written, see orders - Supportive care with plenty of fluids, rest, and analgesia prn. Requested Prescriptions Signed Prescriptions Disp Refills cefADROxil (DURICEF) 500 mg capsule 20 capsule 0 Sig: Take (more content not included)... [facility] 06-19-2022 History of Presen t illness Narrative Chief Complaint Patient presents with: Sinus Infection,frequent/recurring HPI Nancy Montes is a 46 year old female who presents here today for sinus infection. Symptoms start about 4 weeks ago. Had what she felt was a cold. Had yellow green nasal drainage and now is clear to slight yellow. Has post nasal drainage. No sore throat but has a productive cough with green/yellow mucus. No ear pain. Has pressure above and below the left eye. Yesterday felt feverish and chilled. No nausea, vomiting, diarrhea, shortness of breath, wheezing or body aches. Has noticed some soft tissue swelling around the left eye. No pain with moving eyes. Past medical history, appointments, medications, allergies reviewed. Previous Medical History PAST MEDICAL HISTORY Diagnosis Date Essential hypertension, benign irregular heartbeats, FRACTURE AGE 7 RIGHT ARM Infertility, female Mental disorder depression w/hx of suicidal ideation Migraines Polycystic ovaries infertility Previous Surgical History PAST SURGICAL HISTORY Procedure Laterality Date BREAST BIOPSY Left 02/2019 DELIVERY ONLY 02/17/14 , low transverse OVARY SURGERY HX dermoid cyst removal PAST SURGICAL HISTORY OF Right 2010 surgery on right eye Family History FAMILY HISTORY Problem Relation Age of Onset Hypertension Mother Thyroid Mother Kidney Disease Mother Psychiatry Mother DEPRESSION Hypertension Father Heart Father cabg Heart Maternal Grandmother Emphysema Maternal Grandmother Hypertension Maternal Grandmother Cancer Maternal Grandfather lung cancer Diabetes Paternal Grandmother Arthritis Paternal Grandmother Hypertension Paternal Grandmother Cancer Paternal Grandfather SKIN CANCER Seizures Brother other (celiac) Brother Patient Allergies ALLERGIES Allergen Reactions Imitrex [Sumatripta* Other: See Comments Cardiac Arrest Bactrim Ds [Sulfame* Swelling Penicillins facial swelling Zithromax [Azithrom* Intolerance Patient reports feels like life sucked out of me. Current Medications Current Outpatient Medications on File Prior to Visit Medication Sig labetalol (TRANDATE) 300 mg tablet Take 2 tablets by mouth three times daily. spironolactone (ALDACTONE) 25 mg tablet Take 1 tablet by mouth once daily. dilTIAZem CR (TIAZAC,TAZTIA XT) 240 mg 24 hr capsule Take 1 capsule by mouth once daily. Multivitamin capsule Take 1 capsule by mouth once daily. CALCIUM CARBONATE/VITAMIN D2 (CALCIUM + VITAMIN D ORAL) Take by mouth twice daily. Blood Pressure Test Kit-Medium kit 1 Device twice daily. No current facility-administered medications on file prior to visit. Social History Social History Tobacco Use Smoking status: Former Years: 1.00 Types: Cigarettes Quit date: 04/13/1996 Years since quittin.2 Smokeless tobacco: Never Vaping Use Vaping Use: Never used Substance Use Topics Alcohol use: Never Comment: rare Drug use: No Review of Symptoms REVIEW OF SYSTEMS See HPI EXAM: BP 128/90 (BP Site: Right Arm, BP Position: Sitting, BP Cuff Size: Large Adult) Pulse 94 Temp 36 C (96.8 F) (Tympanic) Wt 97.1 kg (214 lb) LMP 07/03/2021 SpO2 97% BMI 34.80 kg/m General Appearance: Well appearing, alert, in no acute distress, well-hydrated, well nourished.. Eyes: Anicteric sclera. Pupils are equally round and reactive to light. Extraocular movements are intact. . Ears: External ears normal, canals clear. Nose/Sinuses: Nares normal, septum midline, mucosa normal, no drainage has ethmoid sinus tenderness on the left. Mild soft tissue swelling around the left eye. Oropharynx: Lips, mucosa, and tongue normal, teeth and gums normal, oropharynx normal. Neck: Supple, no adenopathy; thyroid symmetric, normal size, no bruits. Lungs: Lungs clear to auscultation. No wheezing, rhonchi, rales.. Heart: RRR without murmur, gallop, or rubs. No ectopy. Health Maintenance List BP CONTROLLED (<130/80) due on 11/24/2019 COVID-19 VACCINE(4 - Booster for Moderna series) due on 06/09/2021 DEPRESSION ASSESSMENT due on 04/13/2022 PAP TESTING due on 10/12/2022 HPV TESTING due on 10/12/2022 MAMMOGRAM due on 02/20/2023 ANNUAL PCP TEAM CHRONIC DISEASE VISIT due on 03/11/2023 DTAP,TDAP,TD(3 - Td or Tdap) due on 12/17/2023 HEPATITIS B Completed INFLUENZA Completed HEPATITIS C SCREENING Completed HIV SCREENING Completed Data reviewed A/P ASSESSMENT/PLAN: 1. Bacterial sinusitis - ICD9: 473.9, 041.9, ICD10: J32.9, B96.89 - Will begin treatment with as per antibiotic as written, see orders - Supportive care with plenty of fluids, rest, and analgesia prn. Requested Prescriptions Signed Prescriptions Disp Refills cefADROxil (DURICEF) 500 mg capsule 20 capsule 0 Sig: Take 1 capsule by mouth twice daily. F/u if not improving. Felipe Huber MD documented in this encounter [facility] 03-12-2022 Miscellaneous Notes Patient reviewed [facility] message. Closing encounter. Brunilda Vines LPN [facility] message also sent to patient regarding results. Brunilda Vines LPN Message left for patient to call back for update. Brunilda Vines LPN Please call patient and let her know she is negative for COVID-19 and influenza. Ra Bowers APRN.LORENA documented in this encounter [facility] 02-24-2022 Miscellaneous Notes TC to patient, message left to call back for update. Brunilda Vines LPN Please call patient and let her know her cholesterol has decreased slightly. Recommend she continue to work on low fat diet and at least 150 minutes of exercise per week. Ra Bowers APRN.LORENA documented in this encounter [facility] 02-21-2022 Miscellaneous Notes February 21, 2022 PID: [id number] Nancy Montes [address] [place] [address] Dear Ms. Montes, We are pleased to inform you that the results of your recent breast imaging exam on 02/20/2022 are normal. Your mammogram demonstrates that you have dense breast tissue, which could hide abnormalities. Dense breast tissue, in and of itself, is a relatively common condition. Therefore, this information is not provided to cause undue concern; rather, it is to raise your awareness and promote discussion with your health care provider regarding the presence of dense breast tissue in addition to other risk factors. Early detection of cancer is very important. We also understand recommendations regarding breast cancer screening are controversial. Please discuss with your primary care provider which strategy is best for you and whether a mammogram is right for you. Your imaging studies and report will be kept on file at [facility] as part of your permanent medical record and are available for your continuing care. Thank you for allowing us to help in meeting your health care needs. Sincerely, Dr. Hickey Interpreting Radiologist [facility] (Normal over 40) documented in this encounter [facility] 02-20-2022 History of Presen t illness Narrative Radiology Service Progress Note PATIENT NAME: Nancy Montes DATE OF SERVICE: February 20, 2022 TIME: 9:52 AM PATIENT IDENTITY VERIFICATION COMPLETED USING TWO (2) IDENTIFIERS: Name and Date of confirmed by patient verbally. FALL SCREENING: Has the patient had 2 falls in the last year or 1 fall with injury or currently using an Ambulatory Assistive Device (Walker, Cane, Wheelchair, Crutches, etc.)? No PATIENT GENDER DATA: Female. status: : No status: NO. PATIENT RELEVANT IMPLANT DATA REVIEWED: Not Applicable RADIOLOGY DEPARTMENT: Mammography PERIPHERAL IV DATA: Not applicable SIGNED BY: Dexter [employer] Jean Carlos February 20, 2022 9:52 AM documented in this encounter [facility] 02-12-2022 History of Presen t illness Narrative 02/12/2022 Patient presents with: Recheck: Blood pressure SUBJECTIVE: This is a 46 year old that is here today for Above Complaints. Since last office visit has been in good health without ER visits of hospitalizations. HTN: Patient is compliant with meds Yes Monitors bp at home: occasionally. Denies side effects: Yes. Chest pain: No. Dyspnea: No. Edema: No. Palpitations: No. Syncope: No. Headache: hx of migraines- unchanged pattern per patient Dizziness: No. Gets some patches of dryer skin to hands and has small patch on neck. Not really itchy. PAST MEDICAL HISTORY Diagnosis Date Essential hypertension, benign irregular heartbeats, FRACTURE AGE 7 RIGHT ARM Infertility, female Mental disorder depression w/hx of suicidal ideation Migraines Polycystic ovaries infertility ALLERGIES Imitrex [Sumatriptan], Bactrim Ds [Sulfamethoxazole-Trimethoprim] , Penicillins, and Zithromax [Azithromycin] MEDICATIONS Current Outpatient Medications Medication Sig spironolactone (ALDACTONE) 25 mg tablet Take 1 tablet by mouth once daily. labetalol (TRANDATE) 300 mg tablet Take 2 tablets by mouth three times daily. dilTIAZem CR (TIAZAC,TAZTIA XT) 240 mg 24 hr capsule Take 1 capsule by mouth once daily. Multivitamin capsule Take 1 capsule by mouth once daily. Blood Pressure Test Kit-Medium kit 1 Device twice daily. CALCIUM CARBONATE/VITAMIN D2 (CALCIUM + VITAMIN D ORAL) Take by mouth twice daily. No current facility-administered medications for this visit. Medications and allergies reviewed by this provider. SOCIAL HISTORY Social History Tobacco Use Smoking status: Former Years: 1.00 Types: Cigarettes Quit date: 04/13/1996 Years since quittin.8 Smokeless tobacco: Never Vaping Use Vaping Use: Never used Substance Use Topics Alcohol use: Never Comment: rare Drug use: No REVIEW OF SYSTEMS All other reviewed and negative other than HPI. OBJECTIVE: BP 132/87 Pulse 97 Resp 16 Wt 95.9 kg (211 lb 6.4 oz) LMP 07/03/2021 SpO2 97% BMI 34.38 kg/m . Vital signs reviewed by this provider. APPEARANCE Well appearing, alert, in no acute distress, well-hydrated, well nourished. EYES conjunctiva and sclera normal. HEART RRR with normal S1 and S2, no murmurs, no gallops, no JVD appreciated LUNG clear to auscultation. No wheezes, rhonchi, or rales EXTREMITIES Extremities normal, No deformities, No skin discoloration, No edema, and Normal pulses bilaterally. SKIN Skin color, texture, turgor normal, no suspicious rashes or lesions Component Latest Ref Rng & Units 08/30/2021 Protein, Total 6.3 - 8.0 g/dL 6.5 Albumin 3.9 - 4.9 g/dL 4.5 Calcium 8.5 - 10.2 mg/dL 9.5 Bilirubin, Total 0.2 - 1.3 mg/dL 0.3 Alkaline Phosphatase 34 - 123 U/L 67 AST 13 - 35 U/L 19 ALT 7 - 38 U/L 16 Glucose 74 - 99 mg/dL 92 BUN 7 - 21 mg/dL 12 Creatinine 0.58 - 0.96 mg/dL 0.85 Sodium 136 - 144 mmol/L 141 Potassium 3.7 - 5.1 mmol/L 4.2 Chloride 97 - 105 mmol/L 107 (H) CO2 22 - 30 mmol/L 22 Anion Gap 9 - 18 mmol/L 12 eGFR >=60 mL/min/1.73m 87 Cholesterol, Total <200 mg/dL 236 (H) Triglyceride <150 mg/dL 66 HDL Cholesterol >39 mg/dL 50 Non HDL Cholesterol <130 mg/dL 186 (H) Fasting Time hrs 12 VLDL Cholesterol <30 mg/dL 13 TC:HDL Ratio <5.10 4.72 LDL Cholesterol <100 mg/dL 173 (H) LDL:HDL Ratio <2.54 3.46 (H) BP CONTROLLED (<130/80) due on 11/24/2019 MAMMOGRAM due on 02/08/2021 DEPRESSION ASSESSMENT Never done COVID-19 VACCINE(4 - Booster for Moderna series) due on 06/09/2021 ANNUAL PCP TEAM CHRONIC DISEASE VISIT due on 08/30/2022 PAP TESTING due on 10/12/2022 HPV TESTING due on 10/12/2022 DTAP,TDAP,TD(3 - Td or Tdap) due on 12/17/2023 HEPATITIS B Completed INFLUENZA Completed HEPATITIS C SCREENING Completed HIV SCREENING Completed ASSESSMENT/PLAN: 1. Hypertension, essential - ICD9: 401.9, ICD10: I10 (primary diagnosis) - good control - Continue current medication(s) - Encouraged dietary sodium restriction/DASH diet - Recommended regular aerobic exercise. - Recommend home blood pressure monitoring, to bring results in on next visit - Discussed need and benefit for weight loss. - Recheck in 6 months, sooner should new symptoms or problems arise. - Goal of BP <140/90 - Goal of BP <130/80 - Recommended no refined sugar, low refined starch, healthy oil intake (olive oil), healthy protein (fish) along the lines of the Mediterranean diet. - LABETALOL 300 MG TABLET - BASIC METABOLIC PNL 2. Hyperlipidemia, mixed - ICD9: 272.2, ICD10: E78.2 - to be determined upon return of lab results - Encouraged following a low fat, low cholesterol diet. - Discussed the benefits of regular aerobic exercise and weight loss. - Encouraged following a low carbohydrate, healthy oil intake diet. - LIPID PANEL BASIC - follow-up pending blood work Ra Bowers APRN.LORENA Prescription instructions reviewed with patient as applicable. Patient advised if symptoms do not improve or if symptoms worsen sooner, to contact their primary care physician. Potential red flag symptoms discussed with the patient. Reviewed appropriate action plan to take if red flag symptoms occur. Patient agreeable to treatment plan. I spent a total of 23 minutes on the date of the service which included preparing to see the patient, [id number] patient care, completing clinical documentation, obtaining and/or reviewing separately obtained history, performing a medically appropriate examination, counseling and educating the patient/family/caregiver, and ordering medications, tests, or procedures. documented in this encounter [facility] 02-11-2022 Miscellaneous Notes Patient returned call and appt scheduled for BP check on 02/12/22. Criss Willett RN Letter sent to patient requesting she contact our office. Left a message for pt to call the office and ask to speak to a nurse. Sylvie Jefferson LPN Left a message for pt to call the office and ask to speak to a nurse. Sylvie Jefferson LPN TC to pt. LM to call office, ask for triage nurse to make office visit with PCP or his team in the next couple of weeks for BP check. Per PCP. Cristin Hernandez LPN No showed NV for BP recheck. Needs to schedule OV to recheck BP in the next couple weeks. documented in this encounter [facility] 09-02-2021 Miscellaneous Notes Patient returned call and given provider's message below and patient verbalized understanding. Cherry Willett RN Called and left a voicemail for the Patient to call back and ask for a nurse to receive the providers message. Joseline Rodriguez RN Please call patient and let her know her total cholesterol and LDL ( bad) cholesterol) are elevated. Recommend low fat diet and at least 150 minutes of exercise per week. Recheck fasting in 3 months. The rest of her blood work is normal. Thanks, Ra Bowers APRN.[employer] documented in this encounter [facility] 08-20-2021 Miscellaneous Notes Called PT left VM to call us back to set up Appt. documented in this encounter [facility] documented as of this encounter (statuses as of 08/21/2021) [facility] History of Past illness Narrative* Problem Noted Date Resolved Date Depressive disorder, not elsewhere classified 11/23/2018 Overview: 07/29/2013Pt has a history of depression diagnosed in 2005 and is currently treated by Dr. Rangel. She is currently weaning herself off Celexa . Discussed increased risks of depression during and and importance of reporting the development or worsening of symptoms should they occur. Pt states that she did have suicidal thoughts in October 2011. She states she was hospitalized for 6 days at [facility]. She denies any suicidal thoughts since then. Recommended patient to be seen at the counseling center. Patient agrees and appointment was made for her on August 04 at 2:30.TKRN Essential hypertension, benign 04/18/2002 0 06/16/2006 Mental disorder 11/23/2018 Overview: depression w/hx of suicidal ideation documented as of this encounter (statuses as of 09/02/2021) [facility] History of Past illness Narrative* Problem Noted Date Resolved Date Depressive disorder, not elsewhere classified 11/23/2018 Overview: 07/29/2013Pt has a history of depression diagnosed in 2005 and is currently treated by Dr. Rangel. She is currently weaning herself off Celexa . Discussed increased risks of depression during and and importance of reporting the development or worsening of symptoms should they occur. Pt states that she did have suicidal thoughts in October 2011. She states she was hospitalized for 6 days at [facility]. She denies any suicidal thoughts since then. Recommended patient to be seen at the counseling center. Patient agrees and appointment was made for her on August 04 at 2:30.TKRN Essential hypertension, benign 04/18/2002 0 06/16/2006 Mental disorder 11/23/2018 Overview: depression w/hx of suicidal ideation documented as of this encounter (statuses as of 02/11/2022) [facility] History of Past illness Narrative* Problem Noted Date Resolved Date Depressive disorder, not elsewhere classified 11/23/2018 Overview: 07/29/2013Pt has a history of depression diagnosed in 2005 and is currently treated by Dr. Rangel. She is currently weaning herself off Celexa . Discussed increased risks of depression during and and importance of reporting the development or worsening of symptoms should they occur. Pt states that she did have suicidal thoughts in October 2011. She states she was hospitalized for 6 days at [facility]. She denies any suicidal thoughts since then. Recommended patient to be seen at the counseling center. Patient agrees and appointment was made for her on August 04 at 2:30.TKRN Essential hypertension, benign 04/18/2002 0 06/16/2006 Mental disorder 11/23/2018 Overview: depression w/hx of suicidal ideation documented as of this encounter (statuses as of 02/12/2022) [facility] History of Past illness Narrative* Problem Noted Date Resolved Date Depressive disorder, not elsewhere classified 11/23/2018 Overview: 07/29/2013Pt has a history of depression diagnosed in 2005 and is currently treated by Dr. Rangel. She is currently weaning herself off Celexa . Discussed increased risks of depression during and and importance of reporting the development or worsening of symptoms should they occur. Pt states that she did have suicidal thoughts in October 2011. She states she was hospitalized for 6 days at [facility]. She denies any suicidal thoughts since then. Recommended patient to be seen at the counseling center. Patient agrees and appointment was made for her on August 04 at 2:30.TKRN Essential hypertension, benign 04/18/2002 0 06/16/2006 Mental disorder 11/23/2018 Overview: depression w/hx of suicidal ideation documented as of this encounter (statuses as of 02/25/2022) [facility] History of Past illness Narrative* Problem Noted Date Resolved Date Depressive disorder, not elsewhere classified 11/23/2018 Overview: 07/29/2013Pt has a history of depression diagnosed in 2005 and is currently treated by Dr. Rangel. She is currently weaning herself off Celexa . Discussed increased risks of depression during and and importance of reporting the development or worsening of symptoms should they occur. Pt states that she did have suicidal thoughts in October 2011. She states she was hospitalized for 6 days at [facility]. She denies any suicidal thoughts since then. Recommended patient to be seen at the counseling center. Patient agrees and appointment was made for her on August 04 at 2:30.TKRN Essential hypertension, benign 04/18/2002 0 06/16/2006 Mental disorder 11/23/2018 Overview: depression w/hx of suicidal ideation documented as of this encounter (statuses as of 02/25/2022) [facility] History of Past illness Narrative* Problem Noted Date Resolved Date Depressive disorder, not elsewhere classified 11/23/2018 Overview: 07/29/2013Pt has a history of depression diagnosed in 2005 and is currently treated by Dr. Rangel. She is currently weaning herself off Celexa . Discussed increased risks of depression during and and importance of reporting the development or worsening of symptoms should they occur. Pt states that she did have suicidal thoughts in October 2011. She states she was hospitalized for 6 days at [facility]. She denies any suicidal thoughts since then. Recommended patient to be seen at the counseling center. Patient agrees and appointment was made for her on August 04 at 2:30.TKRN Essential hypertension, benign 04/18/2002 0 06/16/2006 Mental disorder 11/23/2018 Overview: depression w/hx of suicidal ideation documented as of this encounter (statuses as of 03/12/2022) [facility] History of Past illness Narrative* Problem Noted Date Resolved Date Depressive disorder, not elsewhere classified 11/23/2018 Overview: 07/29/2013Pt has a history of depression diagnosed in 2005 and is currently treated by Dr. Rangel. She is currently weaning herself off Celexa . Discussed increased risks of depression during and and importance of reporting the development or worsening of symptoms should they occur. Pt states that she did have suicidal thoughts in October 2011. She states she was hospitalized for 6 days at [facility]. She denies any suicidal thoughts since then. Recommended patient to be seen at the counseling center. Patient agrees and appointment was made for her on August 04 at 2:30.TKRN Essential hypertension, benign 04/18/2002 0 06/16/2006 Mental disorder 11/23/2018 Overview: depression w/hx of suicidal ideation documented as of this encounter (statuses as of 04/17/2022) [facility] History of Past illness Narrative* Problem Noted Date Resolved Date Depressive disorder, not elsewhere classified 11/23/2018 Overview: 07/29/2013Pt has a history of depression diagnosed in 2005 and is currently treated by Dr. Rangel. She is currently weaning herself off Celexa . Discussed increased risks of depression during and and importance of reporting the development or worsening of symptoms should they occur. Pt states that she did have suicidal thoughts in October 2011. She states she was hospitalized for 6 days at [facility]. She denies any suicidal thoughts since then. Recommended patient to be seen at the counseling center. Patient agrees and appointment was made for her on August 04 at 2:30.TKRN Essential hypertension, benign 04/18/2002 0 06/16/2006 Mental disorder 11/23/2018 Overview: depression w/hx of suicidal ideation documented as of this encounter (statuses as of 06/20/2022) [facility] History of Past illness Narrative* Problem Noted Date Resolved Date Depressive disorder, not elsewhere classified 11/23/2018 Overview: 07/29/2013Pt has a history of depression diagnosed in 2005 and is currently treated by Dr. Rangel. She is currently weaning herself off Celexa . Discussed increased risks of depression during and and importance of reporting the development or worsening of symptoms should they occur. Pt states that she did have suicidal thoughts in October 2011. She states she was hospitalized for 6 days at [facility]. She denies any suicidal thoughts since then. Recommended patient to be seen at the counseling center. Patient agrees and appointment was made for her on August 04 at 2:30.TKRN Essential hypertension, benign 04/18/2002 0 06/16/2006 Mental disorder 11/23/2018 Overview: depression w/hx of suicidal ideation documented as of this encounter (statuses as of 07/07/2022) [facility] History of Past illness Narrative* Problem Noted Date Resolved Date Depressive disorder, not elsewhere classified 11/23/2018 Overview: 07/29/2013Pt has a history of depression diagnosed in 2005 and is currently treated by Dr. Rangel. She is currently weaning herself off Celexa . Discussed increased risks of depression during and and importance of reporting the development or worsening of symptoms should they occur. Pt states that she did have suicidal thoughts in October 2011. She states she was hospitalized for 6 days at [facility]. She denies any suicidal thoughts since then. Recommended patient to be seen at the counseling center. Patient agrees and appointment was made for her on August 04 at 2:30.TKRN Essential hypertension, benign 04/18/2002 0 06/16/2006 Mental disorder 11/23/2018 Overview: depression w/hx of suicidal ideation documented as of this encounter (statuses as of 07/10/2022) [facility] History of Past illness Narrative* Problem Noted Date Resolved Date Depressive disorder, not elsewhere classified 11/23/2018 Overview: 07/29/2013Pt has a history of depression diagnosed in 2005 and is currently treated by Dr. Rangel. She is currently weaning herself off Celexa . Discussed increased risks of depression during and and importance of reporting the development or worsening of symptoms should they occur. Pt states that she did have suicidal thoughts in October 2011. She states she was hospitalized for 6 days at [facility]. She denies any suicidal thoughts since then. Recommended patient to be seen at the counseling center. Patient agrees and appointment was made for her on August 04 at 2:30.TKRN Essential hypertension, benign 04/18/2002 0 06/16/2006 Mental disorder 11/23/2018 Overview: depression w/hx of suicidal ideation documented as of this encounter (statuses as of 08/20/2022) [facility] History of Past illness Narrative* Problem Noted Date Resolved Date Depressive disorder, not elsewhere classified 11/23/2018 Overview: 07/29/2013Pt has a history of depression diagnosed in 2005 and is currently treated by Dr. Rangel. She is currently weaning herself off Celexa . Discussed increased risks of depression during and and importance of reporting the development or worsening of symptoms should they occur. Pt states that she did have suicidal thoughts in October 2011. She states she was hospitalized for 6 days at [facility]. She denies any suicidal thoughts since then. Recommended patient to be seen at the counseling center. Patient agrees and appointment was made for her on August 04 at 2:30.TKRN Essential hypertension, benign 04/18/2002 0 06/16/2006 Mental disorder 11/23/2018 Overview: depression w/hx of suicidal ideation documented as of this encounter (statuses as of 08/20/2022) [facility] History of Past illness Narrative* Problem Noted Date Diagnosed Date Resolved Date Depressive disorder, not elsewhere classified 08/06/19 13 11/23/2018 Overview: 07/29/2013Pt has a history of depression diagnosed in 2005 and is currently treated by Dr. Rangel. She is currently weaning herself off Celexa . Discussed increased risks of depression during and and importance of reporting the development or worsening of symptoms should they occur. Pt states that she did have suicidal thoughts in October 2011. She states she was hospitalized for 6 days at [facility]. She denies any suicidal thoughts since then. Recommended patient to be seen at the counseling center. Patient agrees and appointment was made for her on August 04 at 2:30.TKRN Essential hypertension, benign 04/18/2002 06/16/2006 Mental disorder 11/23/2018 Overview: depression w/hx of suicidal ideation documented as of this encounter (statuses as of 02/13/2023) [place] [id number] History of Past illness Narrative* Problem Noted Date Diagnosed Date Resolved Date Depressive disorder, not elsewhere classified 08/06/19 13 11/23/2018 Overview: 07/29/2013Pt has a history of depression diagnosed in 2005 and is currently treated by Dr. Rangel. She is currently weaning herself off Celexa . Discussed increased risks of depression during and and importance of reporting the development or worsening of symptoms should they occur. Pt states that she did have suicidal thoughts in October 2011. She states she was hospitalized for 6 days at [facility]. She denies any suicidal thoughts since then. Recommended patient to be seen at the counseling center. Patient agrees and appointment was made for her on August 04 at 2:30.TKRN Essential hypertension, benign 04/18/2002 06/16/2006 Mental disorder 11/23/2018 Overview: depression w/hx of suicidal ideation documented as of this encounter (statuses as of 03/23/2023) [facility] History of Past illness Narrative* Problem Noted Date Diagnosed Date Resolved Date Depressive disorder, not elsewhere classified 08/06/19 13 11/23/2018 Overview: 07/29/2013Pt has a history of depression diagnosed in 2005 and is currently treated by Dr. Rangel. She is currently weaning herself off Celexa . Discussed increased risks of depression during and and importance of reporting the development or worsening of symptoms should they occur. Pt states that she did have suicidal thoughts in October 2011. She states she was hospitalized for 6 days at [facility]. She denies any suicidal thoughts since then. Recommended patient to be seen at the counseling center. Patient agrees and appointment was made for her on August 04 at 2:30.TKRN Essential hypertension, benign 04/18/2002 06/16/2006 Mental disorder 11/23/2018 Overview: depression w/hx of suicidal ideation documented as of this encounter (statuses as of 03/30/2023) [facility] Hyperlipidemia, mixed- Primary Mixed hyperlipidemia [facility] Hypertension, essential Unspecified essential hypertension documented in this encounter [facility] note* Diagnosis Hypertension, essential- Primary Unspecified essential hypertension Hyperlipidemia, mixed Mixed hyperlipidemia documented in this encounter [facility] note* Diagnosis Bacterial sinusitis- Primary Unspecified sinusitis (chronic) documented in this encounter [facility] note* Diagnosis Acute otitis media, left- Primary Unspecified otitis media URI with cough and congestion documented in this encounter [facility] note* Diagnosis Hypertension, essential- Primary Unspecified essential hypertension Sinus congestion Other diseases of nasal cavity and sinuses documented in this encounter [facility] note* Diagnosis Hypertension, essential Unspecified essential hypertension documented in this encounter [facility] note* Diagnosis Encounter for screening mammogram for breast cancer documented in this encounter [facility] note* Diagnosis Hypertension, essential Unspecified essential hypertension documented in this encounter [facility] note* Diagnosis Encounter for screening mammogram for breast cancer documented in this encounter [facility] for referral (narrative)* Diagnostic Procedure Only (Routine) - Closed Specialty Diagnoses / Procedures Referred By Tammy lal Referred To Contact [facility] Diagnoses Encounter for screening mammogram for breast cancer Procedures ABDULLAHI SCREENING SCREENING MAMMOGRAPHY BI 2-VIEW BREAST INC John Arce MD [address] [place] [address] [facility] [address] [address] Referral ID Status Reason Start Date Expiration Date V isits Requested Visits Authorized [id number] Closed Auto-Generate d Referral 03/13/2021 04/12/2022 1 1 [facility] for referral (narrative)* Diagnostic Procedure Only (Routine) - Authorized Specialty Diagnoses / Procedures Referred By Contzoltan t Referred To Contact [facility] Diagnoses Encounter for screening mammogram for breast cancer Procedures ABDULLAHI SCREENING SCREENING MAMMOGRAPHY BI 2-VIEW BREAST INC John Arce MD [address] [place] [address] [facility] [address] [address] Referral ID Status Reason Start Date Expiration Date Visits Requested Visits Authorized [id number] Authorized Auto-Generat ed Referral 3 04/23/2024 1 1 [facility] N[facility]* Diagnostic Procedure Only (Routine) - Closed Specialty Diagnoses / Procedures Referred By Contac t Referred To Contact [facility] Diagnoses Encounter for screening mammogram for breast cancer Procedures ABDULLAHI SCREENING SCREENING MAMMOGRAPHY BI 2-VIEW BREAST INC CAD John Geiger MD [address] [place] [address] [facility] [address] [place] [address] Referral ID Status Reason Start Date Expiration Date V isits Requested Visits Authorized [id number] Closed Auto-Generate d Referral 03/13/2021 04/12/2022 1 1 [facility] Summary Purpose Family History No Family History Records FoundNo Family History Records FoundNo Family History Records Found Advance Directives No Advanced Directives Records FoundNo Advanced Directives Records FoundNo Advanced Directives Records Found Additional Source Comments INFORMATION SOURCE (unrecogn ized section and content) DATE CREATED AUTHOR AUTHOR'S ORGANIZ ATION 03/08/2019 [facility] DATE CREATED AUTHOR AUTHOR'S ORGANIZ ATION 03/30/2023 [facility] Source Comments (unrecognize d section and content) In the event this informatio n is protected by the Federal Confidentiality of Alcohol and Drug Abuse Patient Records regulations: The Federal rules restrict any use of the information to criminally investigate or prosecute any alcohol or drug abuse patient.[facility] the event this information is protected by the Federal Confidentiality of Alcohol and Drug Abuse Patient Records regulations: The Federal rules restrict any use of the information to criminally investigate or prosecute any alcohol or drug abuse patient.[facility] [place] the event this information is protected by the Federal Confidentiality of Alcohol and Drug Abuse Patient Records regulations: The Federal rules restrict any use of the information to criminally investigate or prosecute any alcohol or drug abuse patient.[facility] the event this information is protected by the Federal Confidentiality of Alcohol and Drug Abuse Patient Records regulations: The Federal rules restrict any use of the information to criminally investigate or prosecute any alcohol or drug abuse patient.[facility] [place] the event this information is protected by the Federal Confidentiality of Alcohol and Drug Abuse Patient Records regulations: The Federal rules restrict any use of the information to criminally investigate or prosecute any alcohol or drug abuse patient.[facility] [place] the event this information is protected by the Federal Confidentiality of Alcohol and Drug Abuse Patient Records regulations: The Federal rules restrict any use of the information to criminally investigate or prosecute any alcohol or drug abuse patient.[facility] [place] the event this information is protected by the Federal Confidentiality of Alcohol and Drug Abuse Patient Records regulations: The Federal rules restrict any use of the information to criminally investigate or prosecute any alcohol or drug abuse patient.[facility] [place] the event this information is protected by the Federal Confidentiality of Alcohol and Drug Abuse Patient Records regulations: The Federal rules restrict any use of the information to criminally investigate or prosecute any alcohol or drug abuse patient.[facility] [place] the event this information is protected by the Federal Confidentiality of Alcohol and Drug Abuse Patient Records regulations: The Federal rules restrict any use of the information to criminally investigate or prosecute any alcohol or drug abuse patient.[facility] [place] the event this information is protected by the Federal Confidentiality of Alcohol and Drug Abuse Patient Records regulations: The Federal rules restrict any use of the information to criminally investigate or prosecute any alcohol or drug abuse patient.[facility] [place] the event this information is protected by the Federal Confidentiality of Alcohol and Drug Abuse Patient Records regulations: The Federal rules restrict any use of the information to criminally investigate or prosecute any alcohol or drug abuse patient.[facility] [place] the event this information is protected by the Federal Confidentiality of Alcohol and Drug Abuse Patient Records regulations: The Federal rules restrict any use of the information to criminally investigate or prosecute any alcohol or drug abuse patient.[facility] [place] the event this information is protected by the Federal Confidentiality of Alcohol and Drug Abuse Patient Records regulations: The Federal rules restrict any use of the information to criminally investigate or prosecute any alcohol or drug abuse patient.[facility] [place] the event this information is protected by the Federal Confidentiality of Alcohol and Drug Abuse Patient Records regulations: The Federal rules restrict any use of the information to criminally investigate or prosecute any alcohol or drug abuse patient.[facility] [place] the event this information is protected by the Federal Confidentiality of Alcohol and Drug Abuse Patient Records regulations: The Federal rules restrict any use of the information to criminally investigate or prosecute any alcohol or drug abuse patient.[facility] [place] the event this information is protected by the Federal Confidentiality of Alcohol and Drug Abuse Patient Records regulations: The Federal rules restrict any use of the information to criminally investigate or prosecute any alcohol or drug abuse patient.[facility] [place] the event this information is protected by the Federal Confidentiality of Alcohol and Drug Abuse Patient Records regulations: The Federal rules restrict any use of the information to criminally investigate or prosecute any alcohol or drug abuse patient.[facility] Reason for Visit (unrecogniz ed section and content) Reason Comments Results Reason Onset Date Comments Refill Request Refill Request 02/11/2022 Reason Comments Recheck Blood pressure Reason Onset Date Comments [facility] COVID Outreach 03/12/2022 Reason Comments Sinus Infection,frequent/recurring Reason Comments Ear Pain Left ear pain x 1 da y Reason Comments F/U 6 months Reason Onset Date Comments Refill Request 03/19/2023 Care Teams (unrecognized sec tion and content) Account Review Specialist Relationship Specialty Start Date End Date John Geiger MD [address] [place] [address] PCP - General Family Practice 03/16/20 Account Review Specialist Relationship Specialty Start Date End Date John Geiger MD [address] [place] [address] PCP - General Family Medicine 03/16/20 Account Review Specialist Relationship Specialty Start Date End Date John Geiger MD [address] [facility] [place] [address] PCP - General Family Medicine 03/16/20 Account Review Specialist Relationship Specialty Start Date End Date John Geiger MD [address] [place] [address] PCP - General Family Medicine 03/16/20 Account Review Specialist Relationship Specialty Start Date End Date John Geiger MD [address] [place] [address] PCP - General Family Medicine 03/16/20 Account Review Specialist Relationship Specialty Start Date End Date John Geiger MD [address] [place] [address] PCP - General Family Medicine 03/16/20 Account Review Specialist Relationship Specialty Start Date End Date John Geiger MD [address] [place] [address] PCP - General Family Medicine 03/16/20 Account Review Specialist Relationship Specialty Start Date End Date John Geiger MD [address] [place] [address] PCP - General Family Medicine 03/16/20 Account Review Specialist Relationship Specialty Start Date End Date John Geiger MD [address] [place] [address] PCP - General Family [facility] 03/16/20 Account Review Specialist Relationship Specialty Start Date End Date John Geiger MD [address] [place] [address] PCP - General Family [facility] 03/16/20 Account Review Specialist Relationship Specialty Start Date End Date John eGiger MD [address] [place] [address] PCP - General Family [facility] 03/16/20 Account Review Specialist Relationship Specialty Start Date End Date John Geiger MD [address] [place] [address] PCP - General Family Medicine 03/16/20 Account Review Specialist Relationship Specialty Start Date End Date John Geiger MD [address] [place] [address] PCP - General Family Medicine 03/16/20 FOR RECORDS PERTAINING TO PATIENTS WHO ARE OR HAVE BEEN ENROLLED IN A CHEMICAL DEPENDENCY/SUBSTANCEABUSE PROGRAM, SOME INFORMATION MAY BE OMITTED. This clinical summary was aggregated from multiple sources. Caution should be exercised in using it in the provision of clinical care. This summary normalizes information from multiple sources, and as a consequence, information in this document may materially change the coding, format and clinical context of patient data. In addition, data may be omitted in some cases. CLINICAL DECISIONS SHOULD BE BASED ON THE PRIMARY CLINICAL RECORDS. [email or web address] [facility]. provides no warranty or guarantee of the accuracy or completeness of information in this document.
[2023-04-12] MEDS: 0.9% Normal Saline (1000mL) 1,000 ML 999 ML IV (11:38)
[2023-04-12] MEDS: Ondansetron 4 MG/2 ML Vial IV (11:38)
[2023-04-12 11:44] VITALS: O2SAT 98
[2023-04-12] MEDS: Ipratropium/Albuterol Sulfate 3 ML AMPUL.NEB INHALATION (11:47)
[2023-04-12 11:52] VITALS: PULSE 117; RESP 18
--- NOTE | 2023-04-12 12:22 | RAD_ITS ---
EXAM: XR CHEST, 2 VIEWS CLINICAL INDICATION: cough TECHNIQUE: Frontal and lateral views of the chest. COMPARISON: XR Chest dated 06/21/2013 FINDINGS: LUNGS AND PLEURAL SPACES: Localized airspace opacification along the junction of the right middle lobe and anterior segment of the right upper lobe consistent with pneumonia. Follow-up recommended to exclude underlying mass lesion. Left lung is clear. HEART: Normal heart size. MEDIASTINUM: No mediastinal or hilar mass. BONES/JOINTS: No acute abnormality. RAD/Chest PA and Lateral IMPRESSION: Focal airspace opacification of the right lung consistent with pneumonia. Follow-up recommended to confirm clearing. Electronically Signed: Catracho Parker MD at 13:20 EST ,
[2023-04-12] MEDS: Acetaminophen 500 MG Tablet 1000 MG PO (12:30)
[2023-04-12 13:51] VITALS: O2SAT 97
[2023-04-12] MEDS: levoFLOXacin 750 MG Tablet PO (14:27)
== END 2023-04-12 14:37 | disposition home or self-care (01) ==
PROVIDERS: Emergency Provider Emergency Medicine; PCP Nurse Practitioner Primary Care; Visit Provider Emergency Medicine
DX: J18.9 Pneumonia, unspecified organism (principal); B97.4 Respiratory syncytial virus as the cause of diseases classified elsewhere; R11.0 Nausea
CPT/HCPCS: 71046; 87631; 93005; 94640; 96374; 99285; J7030; A4216; J2405

== ENCOUNTER 2023-04-13 19:35 | Emergency (ER) | payer OTHER, MEDICAID, SELFPAY ==
[2023-04-13 19:35] VITALS: BP 127/83; PULSE 97; RESP 18; TEMP 36; O2SAT 98; BMI 37.1
--- NOTE | 2023-04-13 19:59 | CT_ITS ---
EXAM: CT ANGIOGRAPHY CHEST WITHOUT AND WITH INTRAVENOUS CONTRAST CLINICAL INDICATION: pneumonia, bloody sputum TECHNIQUE: Helically acquired angiography images were obtained of the chest without and with intravenous contrast. This CT exam was performed using one or more of the following dose reduction techniques: automated exposure control, adjustment of the mA and/or kV according to patient size, and/or use of iterative reconstruction technique. MIP reconstructed images were created and reviewed. CONTRAST: IV 100mL Isovue-370 COMPARISON: No relevant prior studies available. FINDINGS: PULMONARY ARTERIES: Unremarkable. Normal in caliber. No evidence of pulmonary embolism. AORTA: Unremarkable. Normal in caliber. No evidence of dissection. GREAT VESSELS OF AORTIC ARCH: Unremarkable. Normal in caliber. No evidence of dissection. LUNGS AND PLEURAL SPACES: There is consolidation in the right upper lobe compatible with pneumonia. No mass. No pleural effusion or thickening. HEART: Unremarkable. Heart size is normal. No pericardial effusion. No significant coronary artery calcifications. MEDIASTINUM: Unremarkable. No mediastinal or hilar adenopathy. Esophagus is unremarkable. No hiatal hernia. THYROID: Unremarkable. No thyroid lesions. BONES/JOINTS: Unremarkable. No suspicious lytic or blastic abnormality. CT/CTA Chest W/WO Contrast IMPRESSION: 1. No evidence of pulmonary embolus. 2. Right upper lobe pneumonia. Electronically Signed: Migue Vázquez MD at 22:00 EST ,
--- NOTE | 2023-04-13 20:00 | EDS_ITS ---
HPI History of Present Illness Chief Complaint: Palpitations Detail of Chief Complaint: Possible allergic reaction Informant: patient Narrative Narrative: Patient present secondary to concerns for allergic reaction. She was seen in the emergency room yesterday and diagnosed with RSV. She also has a round focal infiltrate in the right lung. Given her antibiotic allergies she was given Levaquin. She states after taking her dose at noon today she has felt very hot, flushed, palpitations, dizzy. She think she is having a reaction to the medication. She also coughed up some bloody sputum. [facility] Medical History (Updated 04/13/23 @ 22:[address] Talisha Mckeon MD) History of depression Hypertension Home Medications labetalol 200 mg tablet 600 mg PO TID BP 08/12/13 [History Last Taken 11/27/18 one] nifedipine 30 mg tablet,extended release 60 mg PO QHS BP 02/02/14 [History Last Taken 11/27/18 one] multivitamin,ee-ahrs-jsczsyld (Complete Multivitamin tablet) 1 tab PO DAILY 08/03/17 [History Last Taken 11/27/18] fcjvwux-gubvycnchwxvc-avqpyscg 250 mg-250 mg-65 mg tablet 1 ea PO PRN PRN Migrai ne Symptoms 10/09/17 [History Last Taken 11/27/18] calcium carbonate 500 mg-vitamin D3 15 mcg (600 unit) tablet 1 ea PO DAILY SUPPLEMENT 10/09/17 [History Last Taken 11/27/18] diltiazem HCl 240 mg capsule,24 hr,extended release 240 mg PO DAILY 11/28/18 [History Last Taken Unknown] levofloxacin 500 mg tablet 500 mg PO DAILY #7 tabs 04/12/23 [Rx Last Taken Unknown] ondansetron 4 mg disintegrating tablet 4 mg PO Q8H PRN PRN Nausea #10 tabs 04/12/23 [Rx Last Taken Unknown] doxycycline monohydrate 100 mg capsule 100 mg PO BID #20 CAPSULES 04/13/23 [Rx Last Taken Unknown] Allergy/AdvReac Type Severity Reaction Status Date / Time Penicillins Allergy Swelling Verified 04/13/23 19:38 Sulfa (Sulfonamide Allergy Unknown Verified 04/13/23 19:38 Antibiotics) sulfamethoxazole Allergy Angioedema Verified 04/13/23 19:38 [From Bactrim] trimethoprim [From Bactrim] Allergy Angioedema Verified 04/13/23 19:38 azithromycin [From Zithromax] AdvReac Other Verified 04/13/23 19:38 sumatriptan [From Imitrex] AdvReac Chest Verified 04/13/23 19:38 tightness sumatriptan succinate AdvReac Chest Verified 04/13/23 19:38 [From Imitrex] tightness Family History Grandmother Diabetes Father No problems noted. Surgical History delivery delivered H/O dilation and curettage S/P eye surgery S/P removal of ovarian cyst Social History Smoking Status: Never smoker alcohol intake: never substance use type: does not use caffeine: Yes what type of physical activity do you participate in: walking seatbelt use: always do you feel safe at home: Yes additional social history: - Attending [employer] for [employer] ROS ROS ED Constitutional Constitutional ED: Reports fever(s) and subjective; Denies chills Eyes Eyes: Denies change in vision or discharge from eye(s) ENT ENT ED: Denies discharge from eye(s), rhinorrhea or sore throat Cardiovascular Cardiovascular: Reports chest pain and palpitations Respiratory/Chest Respiratory/Chest: Reports cough and dyspnea Gastrointestinal Gastrointestinal: Denies abdominal pain, diarrhea, nausea or vomiting Genitourinary Genitourinary ED: Denies dysuria Musculoskeletal Musculoskeletal: Reports myalgias; Denies back pain or extremity pain Integumentary Denies Abrasions or rash Neurologic Neurologic: Denies headache(s) or weakness Psychiatric Psychiatric: Denies anxiety or depression Allergic/Immunologic Allergic/Immunologic ED: Denies lip swelling or urticaria EXAM Physical Exam Const Vital Signs: 04/13/23 19:35 04/13/23 19:50 Temperature 96.8 F L Temperature Source Temporal Pulse Rate 97 Respiratory Rate 18 Respiratory Effort Normal Blood Pressure 127/83 H Blood Pressure Mean 97 Pulse Ox 98 Positive well nourished and well developed General Appearance ED: well developed HEENT Reports moist mucous membranes Eyes EOMs intact bilaterally Chest Wall inspection of chest normal and palpation of chest normal Resp normal respiratory effort and clear to auscultation bilaterally Cardio regular rate and regular rhythm GI non-tender Palpation: soft Extremity normal to inspection Neuro oriented x3 and no sensory deficits noted Motor Exam: strength 5/5 throughout Psych mental status grossly normal Skin no rashes or lesions noted MDM MDM MDM Narrative Medical decision making narrative: Patient's workup from yesterday was reviewed. IV line established. Patient placed on working manager. EKG obtained to evaluate for cardiac arrhythmia/ischemia. Labwork obtained to evaluate for leukocytosis, anemia, and electrolyte derangement. Given the patient has this unusual pneumonia and is now bringing up bloody sputum I will obtain a CTA of her chest to evaluate for pneumonia and pulmonary embolism. History & Record Review Discussion w/independent historian: Patient Additional record(s) reviewed:: Prior ED visit Lab Data Attestation: I reviewed the patient's lab results. Labs: Laboratory Results - last 24 hr 04/13/23 20:18 WBC 12.9 H RBC 4.88 Hgb 13.7 Hct 40.5 MCV 83.0 MCH 28.1 MCHC 33.8 RDW Std Deviation 38.0 RDW Coeff of Rita 12.5 Plt Count 238 MPV 10.1 Immature Gran % (Auto) 0.200 Neut % (Auto) 82.4 H Lymph % (Auto) 11.2 L Galax % (Auto) 5.2 Eos % (Auto) 0.7 Baso % (Auto) 0.3 Absolute Neuts (auto) 10.7 H Absolute Lymphs (auto) 1.45 Nucleated RBC % 0 Sodium 137 Potassium 3.6 Chloride 106 Carbon Dioxide 27.0 Anion Gap 4 L BUN 12 Creatinine 0.78 Estim Creat Clear Calc 81.96 Est GFR (MDRD) Af Amer 102 Est GFR (MDRD) Non-Af 85 BUN/Creatinine Ratio 15.4 Glucose 141 H Calcium 9.0 Serum , Qual NEGATIVE Radiography Diagnostic Testing: Clinical Impression(s) from Imaging Studies Chest CTA 04/13/23 19:59 IMPRESSION: 1. No evidence of pulmonary embolus. 2. Right upper lobe pneumonia. Electronically Signed: Migue Vázquez MD at 22:00 EST , EKG Initial EKG: Attestation: I personally reviewed and interpreted this EKG as follows: Interpretation: Sinus Rhythm (Sinus at 90 with no acute ischemia.) Treatment and Re-Evaluation :: CBC was a white count of 12.9 with 82% neutrophils. Hemoglobin normal at 13.7. Chemistry studies unremarkable other than glucose of 141. test negative. EKG is sinus rhythm with no acute ischemia. CTA of the chest reveals a focal right-sided infiltrates with no evidence of pulmonary embolism. Test results discussed with the patient. She is not sure if she is ever had Levaquin previously but is concerned that her reaction today was secondary to this medication. She also has allergies to Zithromax, Bactrim, and penicillins. She was recently treated with cefdinir and did okay with that for an ear infection. I will try treating her with doxycycline. She will follow-up closely with her primary care physician. Return instructions given. Discharge Plan Triage Chief Complaint: Palpitations ED Provider: Talisha Mckeon Dx/Rx/DC Orders Clinical Impression: Allergic reaction, Pneumonia Instructions: ED ADVERSE DRUG REACTION Allergic, ED Pneumonia (Adult) Prescriptions: New doxycycline monohydrate 100 mg capsule 100 mg PO BID Qty: 20 0RF No Action multivitamin,fu-lxpc-xetxeqlt tablet tablet 1 tab PO DAILY labetalol 200 MG tablet 600 mg PO TID nifedipine 30 MG tablet extended release 60 mg PO QHS cfiqdbk-zfjelfjhxbuml-abgmhubo 1 EACH tablet 1 ea PO PRN PRN (Reason: Migraine Symptoms) calcium carbonate-vitamin D3 1 EACH tablet 1 ea PO DAILY diltiazem HCl 240 MG capsule,extended release 24 hr 240 mg PO DAILY levofloxacin [levofloxacin] 500 mg tablet 500 mg PO DAILY Qty: 7 0RF ondansetron [ondansetron] 4 mg tablet,disintegrating 4 mg PO Q8H PRN PRN (Reason: Nausea) Qty: 10 0RF Primary Care Provider: Claudine Bowers NP Referrals: GautamlogClaudine turcios NP, INFORMATION TECHNOLOGY TECHNICIAN-C [Primary Care Provider] - 5-7 Days Disposition Disposition: Home, Self Care
--- OUTSIDE RECORDS SUMMARY | 2023-04-13 20:08 | XMS RPT_ITS | CCD ---
Author Name Unknown Address [address] [place] [address] Organization [facility] Care Team Providers Care Research Associate Professor Name Role Phone John Geiger MD Primary Care Provider JOHN GEIGER Primary Care Unavailable SHRUTHILOGRA [place] Attending Unavailable JOHN GEIGER Primary Care Unavailable FELIPE HUBER Attending Unavailable JOHN GEIGER Primary Care Unavailable Allergies Allergy Classification Reported Allergen(s) Allergy Type Date of Onset Reaction(s) Facility (18 sources) Azithromycin; Translations: [AZITHROMYCIN] Drug Allergy 10-16-19 18 Intolerance [facility] Work Phone: (3 sources) Penicillins; Translations: [PENICILLINS] Propensity to adverse reactions 04-18-19 03 [facility] (18 sources) Sulfamethoxazole / Trimethoprim; Translations: [SULFAMETHOXAZOLE-TR IMETHOPRIM] Drug Allergy 05-16-19 07 Swelling [facility] Work Phone: (18 sources) SUMAtriptan; Translations: [SUMATRIPTAN] Drug Allergy 08-06-19 13 Other: See Comments [facility] Work Phone: (15 sources) Penicillins Propensity to adverse reactions 04-18-19 03 [facility] Medications Current Medications Medication Drug Class(es) Dates [...] Diastolic blood pressure 99 mm[Hg] Ra Podlogar ADAPTED PHYSICAL EDUCATION SPECIALIST.ACCOUNTS PAYABLE ANALYST Work Phone: [facility] 08-20-2022 11:20-0400 Heart rate 100 /min Ra Podlogar ADAPTED PHYSICAL EDUCATION SPECIALIST.ACCOUNTS PAYABLE ANALYST Work Phone: [facility] 08-20-2022 11:20-0400 Systolic blood pressure 140 mm[Hg] Ra Podlogar ADAPTED PHYSICAL EDUCATION SPECIALIST.ACCOUNTS PAYABLE ANALYST Work Phone: [facility] 08-20-2022 10:59-0400 Body temperature 96.3 [degF] Ra Podlogar ADAPTED PHYSICAL EDUCATION SPECIALIST.ACCOUNTS PAYABLE ANALYST Work Phone: [facility] 08-20-2022 10:59-0400 Body weight 96.98 kg Ra Podlogar ADAPTED PHYSICAL EDUCATION SPECIALIST.ACCOUNTS PAYABLE ANALYST Work Phone: [facility] 08-20-2022 10:59-0400 Respiratory rate 18 /min Ra Podlogar ADAPTED PHYSICAL EDUCATION SPECIALIST.ACCOUNTS PAYABLE ANALYST Work Phone: [facility] 08-20-2022 10:59-0400 SaO2% (BldA) [Mass fraction] 98 % Ra Bowers ADAPTED PHYSICAL EDUCATION SPECIALIST.ACCOUNTS PAYABLE ANALYST Work Phone: [facility] 07-10-2022 15:32-0400 Body temperature 98.1 [degF] Hannah Mary ADAPTED PHYSICAL EDUCATION SPECIALIST.ACCOUNTS PAYABLE ANALYST Work Phone: [facility] 07-10-2022 15:32-0400 Body weight 97.89 kg Hannah Mary ADAPTED PHYSICAL EDUCATION SPECIALIST.ACCOUNTS PAYABLE ANALYST Work Phone: [facility] 07-10-2022 15:32-0400 Diastolic blood pressure 82 mm[Hg] Hannah Mary ADAPTED PHYSICAL EDUCATION SPECIALIST.ACCOUNTS PAYABLE ANALYST Work Phone: [facility] 07-10-2022 15:32-0400 Heart rate 94 /min Hannah Mary ADAPTED PHYSICAL EDUCATION SPECIALIST.ACCOUNTS PAYABLE ANALYST Work Phone: [facility] 07-10-2022 15:32-0400 Respiratory rate 16 /min Hannah Mary ADAPTED PHYSICAL EDUCATION SPECIALIST.ACCOUNTS PAYABLE ANALYST Work Phone: [facility] 07-10-2022 15:32-0400 SaO2% (BldA) [Mass fraction] 97 % Hannah Mary ADAPTED PHYSICAL EDUCATION SPECIALIST.ACCOUNTS PAYABLE ANALYST Work Phone: [facility] 07-10-2022 15:32-0400 Systolic blood pressure 126 mm[Hg] Hannah Mary ADAPTED PHYSICAL EDUCATION SPECIALIST.ACCOUNTS PAYABLE ANALYST Work Phone: [facility] 06-19-2022 14:36-0500 Body temperature 96.8 [degF] Felipe Huber MD Work Phone: [facility] 06-19-2022 14:36-0500 Body weight 97.07 kg Felipe Huber MD Work Phone: [facility] 06-19-2022 14:36-0500 Diastolic blood pressure 90 mm[Hg] Felipe Huber MD Work Phone: [facility] 06-19-2022 14:36-0500 Heart rate 94 /min Felipe Huber MD Work Phone: [facility] 06-19-2022 14:36-0500 SaO2% (BldA) [Mass fraction] 97 % Felipe Huber MD Work Phone: [facility] 06-19-2022 14:36-0500 Systolic blood pressure 128 mm[Hg] Felipe Huber MD Work Phone: [facility] 02-12-2022 10:45-0400 Body weight 95.89 kg Ra Podlogar ADAPTED PHYSICAL EDUCATION SPECIALIST.ACCOUNTS PAYABLE ANALYST Work Phone: [facility] 02-12-2022 10:45-0400 Diastolic blood pressure 87 mm[Hg] Ra Podlogar ADAPTED PHYSICAL EDUCATION SPECIALIST.ACCOUNTS PAYABLE ANALYST Work Phone: [facility] 02-12-2022 10:45-0400 Heart rate 97 /min Ra Podlogar ADAPTED PHYSICAL EDUCATION SPECIALIST.ACCOUNTS PAYABLE ANALYST Work Phone: [facility] 02-12-2022 10:45-0400 Respiratory rate 16 /min Ra Podlogar ADAPTED PHYSICAL EDUCATION SPECIALIST.ACCOUNTS PAYABLE ANALYST Work Phone: [facility] 02-12-2022 10:45-0400 SaO2% (BldA) [Mass fraction] 97 % Ra Podlogar ADAPTED PHYSICAL EDUCATION SPECIALIST.ACCOUNTS PAYABLE ANALYST Work Phone: [facility] 02-12-2022 10:45-0400 Systolic blood pressure 132 mm[Hg] Ra Podlogar ADAPTED PHYSICAL EDUCATION SPECIALIST.ACCOUNTS PAYABLE ANALYST Work Phone: [facility] Encounters Encounter Date Encounter Type Care Provider Facility Start: 03-25-2023 ambulatory John Geiger MD Work Phone: [facility] [place] Start: 03-19-2023 Refill John Geiger MD Work Phone: [facility] [place] Procedures Date Procedure Procedure Detail Performing Clinician [...] Lipid Screening [facility] Start: 02-20-2027 Lipid panel Lipid Screening [facility] Start: 02-20-2025 Diabetes Screening Diabetes Screening [facility] Start: 12-17-2023 Urine microalbumin profile [facility] Start: 08-21-2023 ANNUAL PCP TEAM CHRONIC DISEASE VISIT ANNUAL PCP TEAM CHRONIC DISEASE VISIT [facility] Start: 06-20-2023 ANNUAL PCP TEAM CHRONIC DISEASE VISIT ANNUAL PCP TEAM CHRONIC DISEASE VISIT [facility] Start: 03-11-2023 ANNUAL PCP TEAM CHRONIC DISEASE VISIT ANNUAL PCP TEAM CHRONIC DISEASE VISIT [facility] Start: 02-20-2023 Mammography [facility] Start: 02-20-2023 Screening for malignant neoplasm of breast Mammogram Screening [facility] Start: 02-12-2023 ANNUAL PCP TEAM CHRONIC DISEASE VISIT ANNUAL PCP TEAM CHRONIC DISEASE VISIT [facility] Start: 12-12-2022 Covid-19 Vaccine () Covid-19 Vaccine () [facility] Start: 10-12-2022 HPV TESTING HPV TESTING [facility] Start: 10-12-2022 PAP TESTING PAP TESTING [facility] Start: 10-12-2022 Screening for malignant neoplasm of cervix [facility] Start: 2022 Cologuard (FIT-DNA) Cologuard (FIT-DNA) [facility] Start: 2022 Colonoscopy Colonoscopy [facility] Start: 2022 Colorectal Cancer Screening Colorectal Cancer Screening [facility] Start: [address] Colonography [facility] Start: 2022 Fecal Occult Blood Fecal Occult Blood [facility] Start: 2022 Screening for malignant neoplasm of colon [facility] Start: 2022 Sigmoidoscopy Sigmoidoscopy [facility] Start: 08-30-2022 ANNUAL PCP TEAM CHRONIC DISEASE VISIT ANNUAL PCP TEAM CHRONIC DISEASE VISIT [facility] Start: 04-13-2022 DEPRESSION ASSESSMENT DEPRESSION ASSESSMENT [facility] Start: 02-12-2022 End: 04-14-2022 Basic metabolic 2000 panel - Serum or Plasma BASIC METABOLIC PNL Lab Routine Hypertension, essential Expected: 02/12/2022, Expires: 04/14/2022 [facility] Work Phone: Immunizations Immunization Date Immunization Notes Care Provider Ankit [facility] 01-14-2023 influenza virus vaccine, unspecified formulation John Geiger MD Work Phone: [facility] 02-04-2022 influenza virus vaccine, unspecified formulation Ra Bowers APRN.CNP Work Phone: [facility] 11-29-2019 influenza, high dose seasonal, preservative-free Joe Gisselle DO Work Phone: [facility] 02-15-2019 influenza, seasonal, injectable Joe Gisselle DO Work Phone: [facility] 04-19-2018 hepatitis B vaccine, adult dosage Joe Gisselle DO Work Phone: [facility] Work Phone: 01-01-2018 influenza, injectabl e, quadrivalent, contains preservative Joe Gisselle DO Work Phone: [facility] Work Phone: 11-16-2017 hepatitis B vaccine, adult dosage Joe Gisselle DO Work Phone: [facility] Work Phone: 10-13-2017 hepatitis B vaccine, adult dosage Joe Gisselle DO Work Phone: [facility] 01-25-2014 influenza, seasonal, injectable Joe Gisselle DO Work Phone: [facility] Work Phone: 12-16-2013 tetanus toxoid, reduced diphtheria toxoid, and acellular pertussis vaccine, adsorbed Joe Gisselle DO Work Phone: [facility] 05-16-2006 tetanus toxoid, reduced diphtheria toxoid, and acellular pertussis vaccine, adsorbed Joe Gisselle DO Work Phone: [facility] Work Phone: Payers Date Payer Category Payer Medicaid [id number] 2022 Private Health Insurance [id number] 2022 Unknown [id number] 2013 Medicaid [employer] [id number] 2013-Present [phone] [address] [place] [address] Medicaid [id number] 2013 Medicaid [id number] Social History Date Type Detail Facility Start: 07-14-2013 End: 02-12-2022 Tobacco smoking status NHIS Ex-smoker [facility] End: 04-13-1996 History of tobacco use Current smoker [facility] End: 04-13-1996 History of tobacco use Cigarette Smoker [facility] Start: 07-14-2013 End: 02-12-2022 Tobacco use and exposure Smokeless tobacco non-user [facility] Start: 03-06-2021 End: 08-20-2022 Alcohol intake Lifetime non-drinker (finding) [facility] Start: 03-14-2020 End: 03-11-2022 History SDOH Alcohol Frequency 1 [facility] Start: 03-01-2019 History SDOH Alcohol Comment rare [facility] Start: 1975 Sex Assigned At Female C [facility] Start: 02-11-2022 End: 03-11-2022 History SDOH Alcohol Std Drinks 0 [facility] Start: 02-11-2022 End: 03-11-2022 History SDOH Social Connections Phone 5 [facility] Start: 02-11-2022 History SDOH Social Connections [employer] [facility] Start: 02-11-2022 End: 03-11-2022 History SDOH Social Connections Meetings 3 [facility] Start: 02-11-2022 End: 03-11-2022 History SDOH Stress 2 [facility] Start: 02-10-2022 End: 03-11-2022 Exposure to SARS-CoV-2 (event) Not sure [facility] Start: 03-11-2022 History SDOH Physica l Activity MPS 9 [facility] Start: 02-11-2022 End: 08-20-2022 History of Social function [facility] Start: 02-11-2022 End: 08-20-2022 Social connection and isolation panel [facility] How often do you att end spiritism or hinduism services? Patient refused [facility] Do you belong to any clubs or organizations such as spiritism groups, unions, fraternal or athletic groups, or school groups? Yes [facility] Are you now , , , , never or living with a partner? [facility] How often to you hav e a drink containing alcohol? Never [facility] Do you feel stress - tense, restless, nervous, or anxious, or unable to sleep at night because your mind is troubled all the time - these days [OSQ] Only a little [facility] (I/We) worried esvin er (my/our) food would run out before (I/we) got money to buy more. Never true [facility] In the past 12 month s, was there a time when you were not able to pay the mortgage or rent on time? No [facility] Start: 08-20-2021 Gender identity Identifies as female gender (finding) [facility] Do you feel stress - tense, restless, nervous, or anxious, or unable to sleep at night because your mind is troubled all the time - these days [OSQ] Not at all [facility] Clinical Notes 08-05-2012 to 03-25-2023 Telephone Encounter - Sylvie Jefferson LPN - 03/23/2023 9:34 AM ESTTelephone Encounter - Ra Bowers APRN.CNP - 03/23/2023 9:28 AM Ryder Bowers APRN.CNP - 08/20/2022 10:49 AM EDT Note Date & Type Note Facility 03-25-2023 Note Patient Outreach (IN [facility]MM[facility]) NANCY MONTES ([id number]) 1975 F [facility] Date Time Provider Department 03/25/23 JOHN GEIGER [...] for screening mammogram for breast cancer [Z12.31] Order(s):[facility] [[id number]] Order #: [id number] FUTURE Prescriptions as of 03/30/2023 - labetalol [...] Encounter Status:Closed by RAJANI, PRODUSER on 03/30/23 [facility] 03-23-2023 Miscellaneous Notes Left a message for pt to call the office and ask to speak to a nurse. Sylvie Jefferson LPN Patient is due for follow-up. Please assist in scheduling. Ra Bowers APRN.LORENA JUVENAL-08/20/22 Labs-02/20/22 NOV-none Cristin Hernandez LPN documented in this encounter [facility] 08-20-2022 Note HNO ID: [id number] Author: Ra Bowers APRN.LORENA Service: ? Author [...] if symptoms fail to improve Ra Bowers APRN.ACCOUNTS PAYABLE ANALYST Prescription instructions reviewed with patient as applicable. [...] which included preparing to see the patient, [id number] patient care, completing clinical documentation, obtaining and/or reviewing separately obtained history, performing a medically appropriate examination, and counseling and educating the patient/family/caregiver. [facility] 08-20-2022 History of Presen t illness Narrative [...] which included preparing to see the patient, [id number] patient care, completing clinical documentation, obtaining and/or reviewing separately obtained history, performing a medically appropriate examination, and counseling and educating the patient/family/caregiver. documented in this encounter [facility] 07-10-2022 Note HNO ID: [id number] Author: Hannah Hernandez APRN.LORENA Service: ? Author Type: Nurse Practitioner Type: Progress Notes Filed: 07/10/2022 3:38 PM Note Text: Subjective The history is provided by the patient. No english as a second language instructor was used. HPI Nancy Montes is a [...] have confirmed and edited as necessary, the [facility] Review of Systems Constitutional: Negative for chills, [...] warranting prompt ER evaluation. Hannah Hernandez APRN.CNP [facility] 07-10-2022 Instructions Hannah Hernandez APRN.CNP - 07/10/2022 [...] this encounter [facility] 07-10-2022 History of Presen t illness Narrative Subjective The history is provided by the patient. No english as a second language instructor was used. HPI Nancy Montes is a [...] have confirmed and edited as necessary, the [facility] Review of Systems Constitutional: Negative for chills, [...] this encounter [facility] 07-07-2022 Miscellaneous Notes Pt notified via [facility]. Advised to call in and set up appt for cough. Rebecca Paniagua Ma Needs OV for new symptoms of cough. Recommend OTC delsym and mucinex until she can get in for appointment. documented in this encounter [facility] 06-19-2022 Note HNO ID: [id number] Author: Felipe Huber MD Service: ? Author [...] 0 Sig: Take (more content not included)... [facility] 06-19-2022 History of Presen t illness Narrative [...] this encounter [facility] 03-12-2022 Miscellaneous Notes Patient reviewed [facility] message. Closing encounter. Brunilda Vines LPN [facility] message also sent to patient regarding results. Brunilda Vines LPN Message left for patient to call back for update. Brunilda Vines LPN Please call patient and let her know she is negative for COVID-19 and influenza. Ra Bowers APRN.LORENA documented in this encounter [facility] 02-24-2022 Miscellaneous Notes TC to patient, message left to call back for update. Brunilda Vines LPN Please call patient and let her know her cholesterol has decreased slightly. Recommend she continue to work on low fat diet and at least 150 minutes of exercise per week. Ra Bowers APRN.LORENA documented in this encounter [facility] 02-21-2022 Miscellaneous Notes February 21, 2022 PID: [id number] Nancy Montes [address] [place] [address] Dear Ms. Montes, We are pleased to [...] file at [facility] as part of your permanent medical record and are available for your continuing care. Thank you for allowing us to help in meeting your health care needs. Sincerely, Dr. Hickey Interpreting Radiologist [facility] (Normal over 40) documented in this encounter [facility] 02-20-2022 History of Presen t illness Narrative [...] IV DATA: Not applicable SIGNED BY: Dexter [employer] Jean Carlos February 20, 2022 9:52 AM documented in this encounter [facility] 02-12-2022 History of Presen t illness Narrative [...] which included preparing to see the patient, [id number] patient care, completing clinical documentation, obtaining and/or reviewing separately obtained history, performing a medically appropriate examination, counseling and educating the patient/family/caregiver, and ordering medications, tests, or procedures. documented in this encounter [facility] 02-11-2022 Miscellaneous Notes Patient returned call and [...] this encounter [facility] 09-02-2021 Miscellaneous Notes Patient returned call and [...] blood work is normal. Thanks, Ra Bowers APRN.ACCOUNTS PAYABLE ANALYST documented in this encounter [facility] 08-20-2021 Miscellaneous Notes Called PT left VM to call us back to set up Appt. documented in this encounter [facility] documented as of this encounter (statuses as of 08/21/2021) [facility]04-25-2013 History of Past illness Narrative* Problem Noted [...] she was hospitalized for 6 days at [facility]. She denies any suicidal thoughts since then. Recommended patient to be seen at the counseling center. Patient agrees and appointment was made for her on August 04 at 2:30.TKRN Essential hypertension, benign 04/18/2002 0 06/16/2006 Mental disorder 11/23/2018 Overview: depression w/hx of suicidal ideation documented as of this encounter (statuses as of 09/02/2021) [facility]2013 History of Past illness Narrative* Problem Noted [...] she was hospitalized for 6 days at [facility]. She denies any suicidal thoughts since then. Recommended patient to be seen at the counseling center. Patient agrees and appointment was made for her on August 04 at 2:30.TKRN Essential hypertension, benign 04/18/2002 0 06/16/2006 Mental disorder 11/23/2018 Overview: depression w/hx of suicidal ideation documented as of this encounter (statuses as of 02/11/2022) [facility]-25-2013 History of Past illness Narrative* Problem Noted [...] she was hospitalized for 6 days at [facility]. She denies any suicidal thoughts since then. Recommended patient to be seen at the counseling center. Patient agrees and appointment was made for her on August 04 at 2:30.TKRN Essential hypertension, benign 04/18/2002 0 06/16/2006 Mental disorder 11/23/2018 Overview: depression w/hx of suicidal ideation documented as of this encounter (statuses as of 02/12/2022) [facility]2013 History of Past illness Narrative* Problem Noted [...] she was hospitalized for 6 days at [facility]. She denies any suicidal thoughts since then. Recommended patient to be seen at the counseling center. Patient agrees and appointment was made for her on August 04 at 2:30.TKRN Essential hypertension, benign 04/18/2002 0 06/16/2006 Mental disorder 11/23/2018 Overview: depression w/hx of suicidal ideation documented as of this encounter (statuses as of 02/25/2022) [facility]2013 History of Past illness Narrative* Problem Noted [...] she was hospitalized for 6 days at [facility]. She denies any suicidal thoughts since then. Recommended patient to be seen at the counseling center. Patient agrees and appointment was made for her on August 04 at 2:30.TKRN Essential hypertension, benign 04/18/2002 0 06/16/2006 Mental disorder 11/23/2018 Overview: depression w/hx of suicidal ideation documented as of this encounter (statuses as of 02/25/2022) [facility]2013 History of Past illness Narrative* Problem Noted [...] she was hospitalized for 6 days at [facility]. She denies any suicidal thoughts since then. Recommended patient to be seen at the counseling center. Patient agrees and appointment was made for her on August 04 at 2:30.TKRN Essential hypertension, benign 04/18/2002 0 06/16/2006 Mental disorder 11/23/2018 Overview: depression w/hx of suicidal ideation documented as of this encounter (statuses as of 03/12/2022) [facility] History of Past illness Narrative* Problem Noted [...] she was hospitalized for 6 days at [facility]. She denies any suicidal thoughts since then. Recommended patient to be seen at the counseling center. Patient agrees and appointment was made for her on August 04 at 2:30.TKRN Essential hypertension, benign 04/18/2002 0 06/16/2006 Mental disorder 11/23/2018 Overview: depression w/hx of suicidal ideation documented as of this encounter (statuses as of 04/17/2022) [facility] History of Past illness Narrative* Problem Noted [...] she was hospitalized for 6 days at [facility]. She denies any suicidal thoughts since then. Recommended patient to be seen at the counseling center. Patient agrees and appointment was made for her on August 04 at 2:30.TKRN Essential hypertension, benign 04/18/2002 0 06/16/2006 Mental disorder 11/23/2018 Overview: depression w/hx of suicidal ideation documented as of this encounter (statuses as of 06/20/2022) [facility] History of Past illness Narrative* Problem Noted [...] she was hospitalized for 6 days at [facility]. She denies any suicidal thoughts since then. Recommended patient to be seen at the counseling center. Patient agrees and appointment was made for her on August 04 at 2:30.TKRN Essential hypertension, benign 04/18/2002 0 06/16/2006 Mental disorder 11/23/2018 Overview: depression w/hx of suicidal ideation documented as of this encounter (statuses as of 07/07/2022) [facility] History of Past illness Narrative* Problem Noted [...] she was hospitalized for 6 days at [facility]. She denies any suicidal thoughts since then. Recommended patient to be seen at the counseling center. Patient agrees and appointment was made for her on August 04 at 2:30.TKRN Essential hypertension, benign 04/18/2002 0 06/16/2006 Mental disorder 11/23/2018 Overview: depression w/hx of suicidal ideation documented as of this encounter (statuses as of 07/10/2022) [facility] History of Past illness Narrative* Problem Noted [...] she was hospitalized for 6 days at [facility]. She denies any suicidal thoughts since then. Recommended patient to be seen at the counseling center. Patient agrees and appointment was made for her on August 04 at 2:30.TKRN Essential hypertension, benign 04/18/2002 0 06/16/2006 Mental disorder 11/23/2018 Overview: depression w/hx of suicidal ideation documented as of this encounter (statuses as of 08/20/2022) [facility] History of Past illness Narrative* Problem Noted [...] she was hospitalized for 6 days at [facility]. She denies any suicidal thoughts since then. Recommended patient to be seen at the counseling center. Patient agrees and appointment was made for her on August 04 at 2:30.TKRN Essential hypertension, benign 04/18/2002 0 06/16/2006 Mental disorder 11/23/2018 Overview: depression w/hx of suicidal ideation documented as of this encounter (statuses as of 08/20/2022) [facility] History of Past illness Narrative* Problem Noted [...] she was hospitalized for 6 days at [facility]. She denies any suicidal thoughts since then. Recommended patient to be seen at the counseling center. Patient agrees and appointment was made for her on August 04 at 2:30.TKRN Essential hypertension, benign 04/18/2002 06/16/2006 Mental disorder 11/23/2018 Overview: depression w/hx of suicidal ideation documented as of this encounter (statuses as of 02/13/2023) [place] [id number] History of Past illness Narrative* Problem Noted [...] she was hospitalized for 6 days at [facility]. She denies any suicidal thoughts since then. Recommended patient to be seen at the counseling center. Patient agrees and appointment was made for her on August 04 at 2:30.TKRN Essential hypertension, benign 04/18/2002 06/16/2006 Mental disorder 11/23/2018 Overview: depression w/hx of suicidal ideation documented as of this encounter (statuses as of 03/23/2023) [facility] History of Past illness Narrative* Problem Noted [...] she was hospitalized for 6 days at [facility]. She denies any suicidal thoughts since then. Recommended patient to be seen at the counseling center. Patient agrees and appointment was made for her on August 04 at 2:30.TKRN Essential hypertension, benign 04/18/2002 06/16/2006 Mental disorder 11/23/2018 Overview: depression w/hx of suicidal ideation documented as of this encounter (statuses as of 03/30/2023) [facility] Hyper[facility], mixed- Primary [facility] Hypertension, essential Unspecified essential hypertension documented in this encounter [facility] note* Diagnosis Hypertension, essential- Primary Unspecified essential hypertension Hyperlipidemia, mixed Mixed hyperlipidemia documented in this encounter [facility] note* Diagnosis Bacterial sinusitis- Primary Unspecified sinusitis (chronic) documented in this encounter [facility] note* Diagnosis Acute otitis media, left- Primary Unspecified otitis media URI with cough and congestion documented in this encounter [facility] note* Diagnosis Hypertension, essential- Primary Unspecified essential hypertension Sinus congestion Other diseases of nasal cavity and sinuses documented in this encounter [facility] note* Diagnosis Hypertension, essential Unspecified essential hypertension documented in this encounter [facility] note* Diagnosis Encounter for screening mammogram for breast cancer documented in this encounter [facility] note* Diagnosis Hypertension, essential Unspecified essential hypertension documented in this encounter [facility] note* Diagnosis Encounter for screening mammogram for breast cancer documented in this encounter [facility] for referral (narrative)* Diagnostic Procedure Only (Routine) - Closed Specialty Diagnoses / Procedures Referred By Tammy lal Referred To Contact [facility] Diagnoses Encounter for screening mammogram for breast cancer Procedures ABDULLAHI SCREENING SCREENING MAMMOGRAPHY BI 2-VIEW BREAST INC John Arce MD [address] [place] [address] [facility] [address] [address] Referral ID Status Reason Start Date Expiration Date V isits Requested Visits Authorized [id number] Closed Auto-Generate d Referral 03/13/2021 04/12/2022 1 1 [facility] for referral (narrative)* Diagnostic Procedure Only (Routine) - Authorized Specialty Diagnoses / Procedures Referred By Contzoltan t Referred To Contact [facility] Diagnoses Encounter for screening mammogram for breast cancer Procedures ABDULLAHI SCREENING SCREENING MAMMOGRAPHY BI 2-VIEW BREAST INC John Arce MD [address] [place] [address] [facility] [address] [address] Referral ID Status Reason Start Date Expiration Date Visits Requested Visits Authorized [id number] Authorized Auto-Generat ed Referral 3 04/23/2024 1 1 [facility] Diagnostic Procedure Only (Routine) - Closed Specialty Diagnoses / Procedures Referred By Contac t Referred To Contact [facility] Diagnoses Encounter for screening mammogram for breast cancer Procedures ABDULLAHI SCREENING SCREENING MAMMOGRAPHY BI 2-VIEW BREAST INC CAD John Geiger MD [address] [place] [address] [facility] [address] [place] [address] Referral ID Status Reason Start Date Expiration Date V isits Requested Visits Authorized [id number] Closed Auto-Generate d Referral 03/13/2021 04/12/2022 1 1 [facility] Summary Purpose Family History No Family History Records FoundNo Family History Records FoundNo Family History Records Found Advance Directives No Advanced Directives Records FoundNo Advanced Directives Records FoundNo Advanced Directives Records Found Additional Source Comments INFORMATION SOURCE (unrecogn ized section and content) DATE CREATED AUTHOR AUTHOR'S ORGANIZ ATION 03/08/2019 [facility] DATE CREATED AUTHOR AUTHOR'S ORGANIZ ATION 03/30/2023 [facility] Source Comments (unrecognize d section and content) In the event this informatio n is protected by the Federal Confidentiality of Alcohol and Drug Abuse Patient Records regulations: The Federal rules restrict any use of the information to criminally investigate or prosecute any alcohol or drug abuse patient.[facility] the event this information is protected by the Federal Confidentiality of Alcohol and Drug Abuse Patient Records regulations: The Federal rules restrict any use of the information to criminally investigate or prosecute any alcohol or drug abuse patient.[facility] the event this information is protected by the Federal Confidentiality of Alcohol and Drug Abuse Patient Records regulations: The Federal rules restrict any use of the information to criminally investigate or prosecute any alcohol or drug abuse patient.[facility] the event this information is protected by the Federal Confidentiality of Alcohol and Drug Abuse Patient Records regulations: The Federal rules restrict any use of the information to criminally investigate or prosecute any alcohol or drug abuse patient.[facility] the event this information is protected by the Federal Confidentiality of Alcohol and Drug Abuse Patient Records regulations: The Federal rules restrict any use of the information to criminally investigate or prosecute any alcohol or drug abuse patient.[facility] the event this information is protected by the Federal Confidentiality of Alcohol and Drug Abuse Patient Records regulations: The Federal rules restrict any use of the information to criminally investigate or prosecute any alcohol or drug abuse patient.[facility] the event this information is protected by the Federal Confidentiality of Alcohol and Drug Abuse Patient Records regulations: The Federal rules restrict any use of the information to criminally investigate or prosecute any alcohol or drug abuse patient.[facility] the event this information is protected by the Federal Confidentiality of Alcohol and Drug Abuse Patient Records regulations: The Federal rules restrict any use of the information to criminally investigate or prosecute any alcohol or drug abuse patient.[facility] the event this information is protected by the Federal Confidentiality of Alcohol and Drug Abuse Patient Records regulations: The Federal rules restrict any use of the information to criminally investigate or prosecute any alcohol or drug abuse patient.[facility] the event this information is protected by the Federal Confidentiality of Alcohol and Drug Abuse Patient Records regulations: The Federal rules restrict any use of the information to criminally investigate or prosecute any alcohol or drug abuse patient.[facility] the event this information is protected by the Federal Confidentiality of Alcohol and Drug Abuse Patient Records regulations: The Federal rules restrict any use of the information to criminally investigate or prosecute any alcohol or drug abuse patient.[facility] the event this information is protected by the Federal Confidentiality of Alcohol and Drug Abuse Patient Records regulations: The Federal rules restrict any use of the information to criminally investigate or prosecute any alcohol or drug abuse patient.[facility] the event this information is protected by the Federal Confidentiality of Alcohol and Drug Abuse Patient Records regulations: The Federal rules restrict any use of the information to criminally investigate or prosecute any alcohol or drug abuse patient.[facility] the event this information is protected by the Federal Confidentiality of Alcohol and Drug Abuse Patient Records regulations: The Federal rules restrict any use of the information to criminally investigate or prosecute any alcohol or drug abuse patient.[facility] the event this information is protected by the Federal Confidentiality of Alcohol and Drug Abuse Patient Records regulations: The Federal rules restrict any use of the information to criminally investigate or prosecute any alcohol or drug abuse patient.[facility] the event this information is protected by the Federal Confidentiality of Alcohol and Drug Abuse Patient Records regulations: The Federal rules restrict any use of the information to criminally investigate or prosecute any alcohol or drug abuse patient.[facility] the event this information is protected by the Federal Confidentiality of Alcohol and Drug Abuse Patient Records regulations: The Federal rules restrict any use of the information to criminally investigate or prosecute any alcohol or drug abuse patient.[facility] Reason for Visit (unrecogniz ed section and [...] Care Teams (unrecognized sec tion and content) Research Associate Professor Relationship Specialty Start Date End Date John Geiger MD [address] [place] [address] PCP - General Family Practice 03/16/20 Research Associate Professor Relationship Specialty Start Date End Date John Geiger MD [address] [place] [address] PCP - General Family Medicine 03/16/20 Research Associate Professor Relationship Specialty Start Date End Date John Geiger MD [address] [facility] [place] [address] PCP - General Family Medicine 03/16/20 Research Associate Professor Relationship Specialty Start Date End Date John Geiger MD [address] [place] [address] PCP - General Family Medicine 03/16/20 Research Associate Professor Relationship Specialty Start Date End Date John Geiger MD [address] [place] [address] PCP - General Family Medicine 03/16/20 Research Associate Professor Relationship Specialty Start Date End Date John Geiger MD [address] [place] [address] PCP - General Family Medicine 03/16/20 Research Associate Professor Relationship Specialty Start Date End Date John Geiger MD [address] [place] [address] PCP - General Family Medicine 03/16/20 Research Associate Professor Relationship Specialty Start Date End Date John Geiger MD [address] [place] [address] PCP - General Family Medicine 03/16/20 Research Associate Professor Relationship Specialty Start Date End Date John Geiger MD [address] [place] [address] PCP - General Family [facility] 03/16/20 Research Associate Professor Relationship Specialty Start Date End Date John Geiger MD [address] [place] [address] PCP - General Family [facility] 03/16/20 Research Associate Professor Relationship Specialty Start Date End Date John Geiger MD [address] [place] [address] PCP - General Family [facility] 03/16/20 Research Associate Professor Relationship Specialty Start Date End Date John Geiger MD [address] [place] [address] PCP - General Family Medicine 03/16/20 Research Associate Professor Relationship Specialty Start Date End Date John Geiger MD [address] [place] [address] PCP - General Family Medicine 03/16/20 FOR [...] BE BASED ON THE PRIMARY CLINICAL RECORDS. [employer] [facility]. provides no warranty or guarantee of the accuracy or completeness of information in this document.
[2023-04-13 20:26] LABS: Absolute Lymphocyte Count 1.45 X10^3/uL (0.83-4.51); Absolute Neutrophil Count 10.7 X10^3/uL (2.0-7.7); Basophil# 0.04 X10^3/uL; Basophil% 0.3 % (0-1); Eosinophil# 0.09 X10^3/uL; Eosinophils% 0.7 % (0-5); Hematocrit 40.5 % (37-47); Hemoglobin 13.7 g/dL (12.0-15.0); Lymphocyte # 1.45 X10^3/ul (0.83-4.51); Lymphocyte % 11.2 % (19-41); Mean Corp Hgb Conc 33.8 g/dL (32-36); Mean Corpuscular Hgb 28.1 pg (27.0-32.0); Mean Platelet Vol. 10.1 fl (6.2-12.0); Monocyte# 0.67 X10^3/uL; Monocyte% 5.2 % (0-10); NRBC Flagged by Analyzer 0 % (0-5); Neutrophil # 10.65 X10^3/uL (2.7-7.7); Neutrophil % 82.4 % (47-70); Platelet Count 238 K/mm3 (150-450); RBC Distribution Width CV 12.5 % (11.6-14.6); Red Blood Count 4.88 M/mm3 (4.2-5.4); White Blood Count 12.9 K/mm3 (4.4-11.0)
[2023-04-13 20:40] LABS: Internal QC Validated? YES +Cl - CLEAR BKGD; Pregnancy, Serum, hCG Quali. NEGATIVE Negative; Record Kit Lot#, Serum Preg. 667200
[2023-04-13 20:43] LABS: Anion Gap 4 (5-15); BUN 12 mg/dL (7-18); BUN/Creat Ratio 15.4 RATIO (10-20); Chloride 106 mmol/L (98-107); Creatinine, Serum 0.78 mg/dL (0.55-1.02); EST Glomerular Filtration Rate 85 mL/min (>60); Est Glom Filt Rate - Afr Amer 102 mL/min (>60); Estimated Creatinine Clearance 81.96 ml/min; Glucose 141 mg/dL (74-106); Potassium 3.6 mmol/L (3.5-5.1); Sodium Level 137 mmol/L (136-145)
[2023-04-13 22:24] VITALS: PULSE 85; RESP 19; O2SAT 97
== END 2023-04-13 22:27 | disposition home or self-care (01) ==
PROVIDERS: Emergency Provider Emergency Medicine; PCP Nurse Practitioner Primary Care; Visit Provider Emergency Medicine
DX: T78.40XA Allergy, unspecified, initial encounter (principal); J18.9 Pneumonia, unspecified organism; X58.XXXA Exposure to other specified factors, initial encounter
CPT/HCPCS: 71275; 80048; 84703; 85025; 93005; 99284; Q9967; A4216